=== PATIENT | female | born 1960 | race Two or more races ===

== ENCOUNTER 2019-11-25 04:43 | Emergency (ER) | payer MEDICARE, OTHER ==
[2019-11-25 04:52] VITALS: BP 171/95; PULSE 100; RESP 18; TEMP 98
[2019-11-25] MEDS ORDERED: KETOROLAC 30 MG/ML 1 ML VIAL IVP STA (05:26)
[2019-11-25] MEDS ORDERED: LISINOPRIL 10 MG TAB PO STA (05:26)
[2019-11-25 05:41] LABS: Basophils # (A) 0.2 k/uL (0-0.2); Basophils % (A) 2 %; Eosinophils # (A) 0.5 k/uL (0-0.7); Eosinophils % (A) 5 %; HCT 45.2 % (34.0-46.0); HGB 14.5 gm/dL (11.4-16.0); Lymphocytes # (A) 1.3 k/uL (1.0-4.8); Lymphocytes % (A) 13 %; MCH 32.6 pg (25.0-35.0); MCHC 32.1 g/dL (31.0-37.0); MCV 101.6 fL (80.0-100.0); Macrocytosis Slight; Mean Platelet Volume 7.7; Monocytes # (A) 0.7 k/uL (0-1.0); Monocytes % (A) 7 %; Neutrophils # (A) 7.4 k/uL (1.3-7.7); Neutrophils % (A) 73 %; Platelet Count 327 k/uL (150-450); RBC 4.44 m/uL (3.80-5.40); RDW 13.5 % (11.5-15.5); WBC 10.2 k/uL (3.8-10.6)
--- NOTE | 2019-11-25 05:48 | ED ---
General Adult HPI - General Chief complaint: Extremity Problem,Nontraumatic Stated complaint: Palpitations Time Seen by Provider: 11/25/19 04:46 Source: patient, EMS Mode of arrival: EMS Limitations: no limitations - History of Present Illness Initial comments: Nury is a 59-year-old female with past medical history significant for A. fib, COPD, tobacco abuse and anxiety. Patient comes the ER this morning for evaluation of anxiety and hypertension. Patient states that she is usually on Lisinopril daily, however she ran out 2 days ago and has not been able to get to the pharmacy. patient states she woke up at 2am feeling very anxious, she was nervous about not having her lisinopril and began having a panic attack. Patient has a history of panic attacks. She is on Effexor which she reports she does have and she has been compliant with. Patient states that she can control her panic attack in her hands or going numb and cramping so she called 911. Patient feeling better upon EMS arrival and her symptoms have resolved upon arrival in the emergency department. Patient denies chest pain but reports she did feel that her heart was racing. Denies shortness of breath nausea or vomiting. - Related Data Allergies Allergy/AdvReac Type Severity Reaction Status Date / Time metoprolol Allergy Dyspnea Verified 11/25/19 04:52 Review of Systems ROS Statement: Those systems with pertinent positive or pertinent negative responses have been documented in the HPI. ROS Other: All systems not noted in ROS Statement are negative. Past Medical History Past Medical History: Atrial Fibrillation, Hypertension History of Any Multi-Drug Resistant Organisms: None Reported Additional Past Surgical History / Comment(s): right hand surgery Past Psychological History: Anxiety Smoking Status: Current every day smoker Past Alcohol Use History: None Reported Past Drug Use History: None Reported General Exam - General Exam Comments Initial Comments: Physical Exam GENERAL: Patient is well-developed and well-nourished. Patient is nontoxic and well- hydrated and is in no distress. HENT: Normocephalic, Atraumatic. EYES: PERRL, EOMI PULMONARY: Unlabored respirations. Mild expiratory wheezing consistent with chronic COPD CARDIOVASCULAR: Irregularly irregular tachycardia, warm and well perfused extremities ABDOMEN: Soft and nontender with normal bowel sounds. SKIN: Skin color changes on hands consistent with chronic cigarette smoking : Deferred NEUROLOGIC: Patient is alert and oriented x3. Moving all extremities spontaneously MUSCULOSKELETAL: Normal extremities with adequate strength and full range of motion. No lower extremity swelling or edema. No calf tenderness. PSYCHIATRIC: Normal psychiatric evaluation. Limitations: no limitations Course Vital Signs 11/25/19 04:46 Temperature 98 F Pulse Rate 100 Respiratory 18 Rate Blood Pressure 171/95 O2 Sat by Pulse 95 Oximetry EKG Findings - EKG Comments: EKG Findings:: EKG was obtained due to tachycardia, G was obtained of 5:02 AM, rate is 117 rhythm is narrow complex irregularly irregular tachycardia consistent with A. fib with RVR. Medical Decision Making - Medical Decision Making Patient was seen and evaluated history is obtained from patient. Upon evaluation patient is a symptomatic. Heart rate has decreased to the 90 area labs will be obtained given the patient did seem to have some significant hyperventilation resulting in development of paresthesias in her hands. Labs are consistent with hyperventilation. No acute findings. Patient asymptomatic in the ER she was given her home dose of lisinopril. The same patient eager for discharge home as she has remained asymptomatic throughout her stay H[facility] patient did request an oral Ativan prior to discharge given that she was quite anxious she was given this. Patient making multiple attempts to contact family and [place] for transport home. - Lab Data Result diagrams: 11/25/19 05:11 11/25/19 05:11 Lab Results 11/25/19 11/25/19 11/25/19 Range/Units 05:11 05:11 05:11 WBC 10.2 (3.8-10.6) k/uL RBC 4.44 (3.80-5.40) m/uL Hgb 14.5 (11.4-16.0) gm/dL Hct 45.2 (34.0-46.0) % MCV 101.6 H (80.0-100.0) fL MCH 32.6 (25.0-35.0) pg MCHC 32.1 (31.0-37.0) g/dL RDW 13.5 (11.5-15.5) % Plt Count 327 (150-450) k/uL Neutrophils % 73 % Lymphocytes % 13 % Monocytes % 7 % Eosinophils % 5 % Basophils % 2 % Neutrophils # 7.4 (1.3-7.7) k/uL Lymphocytes # 1.3 (1.0-4.8) k/uL Monocytes # 0.7 (0-1.0) k/uL Eosinophils # 0.5 (0-0.7) k/uL Basophils # 0.2 (0-0.2) k/uL Macrocytosis Slight PT 10.4 (9.0-12.0) sec INR 1.0 (<1.2) APTT 25.6 (22.0-30.0) sec Sodium 136 L (137-145) mmol/L Potassium 5.0 (3.5-5.1) mmol/L Chloride 107 (98-107) mmol/L Carbon Dioxide 21 L (22-30) mmol/L Anion Gap 8 mmol/L BUN 17 (7-17) mg/dL Creatinine 0.47 L (0.52-1.04) mg/dL Est GFR (CKD-EPI)AfAm >90 (>60 ml/min/1.73 sqM) Est GFR (CKD-EPI)NonAf >90 (>60 ml/min/1.73 sqM) Glucose 109 H (74-99) mg/dL Calcium 9.1 (8.4-10.2) mg/dL Magnesium 2.0 (1.6-2.3) mg/dL Total Bilirubin 0.6 (0.2-1.3) mg/dL AST 35 (14-36) U/L ALT 18 (4-34) U/L Alkaline Phosphatase 115 (38-126) U/L Total Protein 7.7 (6.3-8.2) g/dL Albumin 4.2 (3.5-5.0) g/dL Disposition Clinical Impression: HTN (hypertension), Hyperventilation, Tobacco abuse Disposition: HOME SELF-CARE Condition: Stable Additional Instructions: 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 Follow up with her regular doctor. Call 911 or return to the emergency department if he have any worsening symptoms develop any chest pain palpitations nausea vomiting or any new or concerning symptoms. Is patient prescribed a controlled substance at d/c from ED?: No Referrals: Nonstaff,Physician [Primary Care Provider] - 1-2 days
[2019-11-25 05:51] LABS: ALT 18 U/L (4-34); AST 35 U/L (14-36); African American GFR (CKD) >90 (>60 ml/min/1.73 sqM); Albumin 4.2 g/dL (3.5-5.0); Alkaline Phosphatase 115 U/L (38-126); Anion Gap 8 mmol/L; Blood Urea Nitrogen 17 mg/dL (7-17); Calcium 9.1 mg/dL (8.4-10.2); Carbon Dioxide 21 mmol/L (22-30); Chloride 107 mmol/L (98-107); Glucose 109 mg/dL (74-99); Non-African American GFR(CKD) >90 (>60 ml/min/1.73 sqM); Sodium 136 mmol/L (137-145); Total Bilirubin 0.6 mg/dL (0.2-1.3); Total Protein 7.7 g/dL (6.3-8.2)
[2019-11-25 05:52] LABS: Partial Thromboplastin Time 25.6 sec (22.0-30.0); Prothrombin Time 10.4 sec (9.0-12.0)
--- NOTE | 2019-11-25 06:12 | XR ---
EXAM: XR Chest, 2 Views CLINICAL HISTORY: Chest Pain TECHNIQUE: Frontal and lateral views of the chest. COMPARISON: No relevant prior studies available. FINDINGS: Lungs: Subsegmental opacities suggested at the lung bases. The lungs are otherwise unremarkable. The pulmonary vasculature demonstrates no significant radiographic abnormality. Pleural space: Unremarkable. No pneumothorax. No large pleural effusion. Heart: Borderline cardiomegaly. Mediastinum: The mediastinal contours are unremarkable. The trachea is midline. Bones/joints: Unremarkable. IMPRESSION: Subsegmental opacities suggested at the lung bases. Subtle bibasilar pneumonia is suggested. Please correlate clinically. Differential consideration also includes chronic changes or atelectasis. No large pleural effusion or pneumothorax.
[2019-11-25] MEDS ORDERED: LORazepam 1 MG TAB PO STA (06:17)
== END 2019-11-25 07:20 | disposition home or self-care (01) ==
LOC: EC 04:43
DX: I10 Essential (primary) hypertension (principal); R06.4 Hyperventilation; R20.2 Paresthesia of skin; I48.91 Unspecified atrial fibrillation; F17.200 Nicotine dependence, unspecified, uncomplicated; Z88.8 Allergy status to other drugs, medicaments and biological substances
CPT/HCPCS: 36415; 93005; 83880; 80053; 83735; 84484; 85025; 85610; 85730; 71046; 99285; 96374; J1885

== ENCOUNTER 2020-05-14 11:00 | Inpatient (IN) | payer MEDICARE, OTHER ==
[2020-05-14] MEDS ORDERED: SODIUM CHLORIDE 0.9% 1,000 ML IV STA (11:19)
[2020-05-14] MEDS ORDERED: IPRATROPIUM-ALBUTEROL 3 ML NEB INHALATION STA (11:21)
--- NOTE | 2020-05-14 11:27 | ED ---
SOB HPI - General Chief Complaint: Shortness of Breath Stated Complaint: SOB Time Seen by Provider: 05/14/20 11:07 Source: patient, RN/MD, EMS, RN notes reviewed, old records reviewed Mode of arrival: EMS Limitations: no limitations - History of Present Illness Initial Comments: is a transfer from [facility] with 2. shortness of breath and chest discomfort. She reports she had 3 days of worsening shortness of breath. She reports that she recently decided to quit smoking this past week. Patient was seen at [facility] she's been be critically short of breath, was placed on BiPAP. Patient ports that she has a history of atrial fibrillation and as prescribed L Maya a Cardizem and is compliant with medication. She was given an aspirin albuterol, Atrovent and 125 mg soluMedrol. There was a delay and inability complete lab work because the machines are not working at [facility]. Patient reports that her director case management in [place] is Dr. Walker. She is unable to state all for medications or her other physicians. Patient reports that after receiving breathing treatments and BiPAP \ while at [place] she is feeling shortness fo breath is much improved. Patient reports that she does feel somewhat anxious. She is given Ativan at [facility] does report improvement. - Related Data Home Medications Medication Instructions Recorded Confirmed Apixaban [Eliquis] 5 mg PO BID 05/14/20 05/14/20 Diltiazem HCl [Diltiazem HCl 24Hr 180 mg PO HS 05/14/20 05/14/20 ER (CD)] Fish Oil(Unknown) 1 cap PO DAILY 05/14/20 05/14/20 Lisinopril [Zestril] 10 mg PO HS 05/14/20 05/14/20 Multivitamins, Thera [Multivitamin 1 tab PO DAILY 05/14/20 05/14/20 (formulary)] Oxybutynin Xl [Ditropan XL] 5 mg PO DAILY 05/14/20 05/14/20 Venlafaxine HCl ER [Effexor Xr] 75 mg PO HS 05/14/20 05/14/20 Venlafaxine HCl ER [Effexor Xr] 150 mg PO DAILY 05/14/20 05/14/20 hydrOXYzine HCL 25 mg PO BID 05/14/20 05/14/20 Allergies Allergy/AdvReac Type Severity Reaction Status Date / Time metoprolol AdvReac Rapid Verified 05/14/20 12:04 Heart Rate Review of Systems ROS Statement: Those systems with pertinent positive or pertinent negative responses have been documented in the HPI. ROS Other: All systems not noted in ROS Statement are negative. Past Medical History Past Medical History: Atrial Fibrillation, Hypertension History of Any Multi-Drug Resistant Organisms: None Reported Additional Past Surgical History / Comment(s): right hand surgery Past Psychological History: Anxiety Smoking Status: Current every day smoker Past Alcohol Use History: None Reported Past Drug Use History: Marijuana General Exam - General Exam Comments Initial Comments: 51-year-old female. Alert and oriented. No significant distress. Patient is resting in bed requesting coffee. She is on 10 L of oxygen satting at 99%. Limitations: no limitations General appearance: alert, in no apparent distress Head exam: Present: atraumatic Eye exam: Present: normal appearance, PERRL, EOMI. Absent: scleral icterus, conjunctival injection, periorbital swelling ENT exam: Present: normal exam, mucous membranes moist Neck exam: Present: normal inspection. Absent: tenderness, meningismus, lymphadenopathy Respiratory exam: Present: wheezes, decreased breath sounds. Absent: normal lung sounds bilaterally, respiratory distress, rales, rhonchi, stridor Cardiovascular Exam: Present: regular rate, normal rhythm, normal heart sounds. Absent: systolic murmur, diastolic murmur, rubs, gallop, clicks GI/Abdominal exam: Present: soft, normal bowel sounds. Absent: distended, tenderness, guarding, rebound, rigid Extremities exam: Present: normal inspection, full ROM, normal capillary refill. Absent: tenderness, pedal edema, joint swelling, calf tenderness Back exam: Present: normal inspection Neurological exam: Present: alert, oriented X3, CN II-XII intact Psychiatric exam: Present: normal affect, normal mood Skin exam: Present: warm, dry, intact, normal color. Absent: rash Course Vital Signs 05/14/20 05/14/20 05/14/20 11:13 11:38 11:55 Temperature 98.5 F Pulse Rate 105 H 89 92 Respiratory 24 Rate Blood Pressure 129/97 O2 Sat by Pulse 98 Oximetry 05/14/20 12:18 Temperature Pulse Rate Respiratory 20 Rate Blood Pressure O2 Sat by Pulse Oximetry - Reevaluation(s) Reevaluation #1: 05/14/20 13:55 reevaluated becoming clinically more dyspneic, and anxious. Pulling a clothes. States she has to get out of here. Patient has diffuse rales and rhonchi throughout lung soler. Stat chest x-rays being completed this time and rest recall the put the Patient back on BiPAP. Medical Decision Making - Medical Decision Making Patient is a 59-year-old female with history of atrial fibrillation L Maya with worsening shortness of breath and chest discomfort today. She is a transfer from [facility]. When she was there she was found to be respirator distress and placed on BiPAP. [facility] and were waiting further lab evaluation. Her initial chest x-ray [facility] show some interstitial edema. Patient labs were obtained and given small fluid bolus. While Patient was in emergency department she started to decline worsening shortness of breath. She has been started on BiPAP again at this time. Her tubal glass will be completed. Patient does not have an elevated troponin 0.7. Patient was started on heparin bolus and drip. D-dimer is negative. Disucssed with Dr. Rodríguez whom discussed with Dr. Hale and Dr. Finley. - Lab Data Result diagrams: 05/14/20 11:33 05/14/20 12:37 Lab Results 05/14/20 05/14/20 05/14/20 Range/Units 11:33 11:33 11:33 WBC 14.0 H (3.8-10.6) k/uL RBC 3.98 (3.80-5.40) m/uL Hgb 13.3 (11.4-16.0) gm/dL Hct 40.7 (34.0-46.0) % MCV 102.2 H (80.0-100.0) fL MCH 33.5 (25.0-35.0) pg MCHC 32.8 (31.0-37.0) g/dL RDW 13.9 (11.5-15.5) % Plt Count 295 (150-450) k/uL Neutrophils % 93 % Lymphocytes % 4 % Monocytes % 2 % Eosinophils % 1 % Basophils % 0 % Neutrophils # 13.0 H (1.3-7.7) k/uL Lymphocytes # 0.5 L (1.0-4.8) k/uL Monocytes # 0.2 (0-1.0) k/uL Eosinophils # 0.1 (0-0.7) k/uL Basophils # 0.0 (0-0.2) k/uL Macrocytosis Slight PT 10.0 (9.0-12.0) sec INR 1.0 (<1.2) APTT 21.9 L (22.0-30.0) sec D-Dimer (<0.60) mg/L FEU VBG pH (7.31-7.41) VBG pCO2 (37-51) mmHg VBG HCO3 (24-28) mmol/L Sodium (137-145) mmol/L Potassium (3.5-5.1) mmol/L Chloride (98-107) mmol/L Carbon Dioxide (22-30) mmol/L Anion Gap mmol/L BUN (7-17) mg/dL Creatinine (0.52-1.04) mg/dL Est GFR (CKD-EPI)AfAm (>60 ml/min/1.73 sqM) Est GFR (CKD-EPI)NonAf (>60 ml/min/1.73 sqM) Glucose (74-99) mg/dL Plasma Lactic Acid Fausto 1.4 (0.7-2.0) mmol/L Calcium (8.4-10.2) mg/dL Magnesium (1.6-2.3) mg/dL Total Bilirubin (0.2-1.3) mg/dL AST (14-36) U/L ALT (4-34) U/L Alkaline Phosphatase (38-126) U/L Troponin I (0.000-0.034) ng/mL NT-Pro-B Natriuret Pep pg/mL Total Protein (6.3-8.2) g/dL Albumin (3.5-5.0) g/dL 05/14/20 05/14/20 05/14/20 Range/Units 11:33 11:33 11:33 WBC (3.8-10.6) k/uL RBC (3.80-5.40) m/uL Hgb (11.4-16.0) gm/dL Hct (34.0-46.0) % MCV (80.0-100.0) fL MCH (25.0-35.0) pg MCHC (31.0-37.0) g/dL RDW (11.5-15.5) % Plt Count (150-450) k/uL Neutrophils % % Lymphocytes % % Monocytes % % Eosinophils % % Basophils % % Neutrophils # (1.3-7.7) k/uL Lymphocytes # (1.0-4.8) k/uL Monocytes # (0-1.0) k/uL Eosinophils # (0-0.7) k/uL Basophils # (0-0.2) k/uL Macrocytosis PT (9.0-12.0) sec INR (<1.2) APTT (22.0-30.0) sec D-Dimer 0.28 (<0.60) mg/L FEU VBG pH (7.31-7.41) VBG pCO2 (37-51) mmHg VBG HCO3 (24-28) mmol/L Sodium (137-145) mmol/L Potassium (3.5-5.1) mmol/L Chloride (98-107) mmol/L Carbon Dioxide (22-30) mmol/L Anion Gap mmol/L BUN (7-17) mg/dL Creatinine (0.52-1.04) mg/dL Est GFR (CKD-EPI)AfAm (>60 ml/min/1.73 sqM) Est GFR (CKD-EPI)NonAf (>60 ml/min/1.73 sqM) Glucose (74-99) mg/dL Plasma Lactic Acid Fausto (0.7-2.0) mmol/L Calcium (8.4-10.2) mg/dL Magnesium (1.6-2.3) mg/dL Total Bilirubin (0.2-1.3) mg/dL AST (14-36) U/L ALT (4-34) U/L Alkaline Phosphatase (38-126) U/L Troponin I 0.704 H* (0.000-0.034) ng/mL NT-Pro-B Natriuret Pep 3790 pg/mL Total Protein (6.3-8.2) g/dL Albumin (3.5-5.0) g/dL 05/14/20 05/14/20 Range/Units 11:55 12:37 WBC (3.8-10.6) k/uL RBC (3.80-5.40) m/uL Hgb (11.4-16.0) gm/dL Hct (34.0-46.0) % MCV (80.0-100.0) fL MCH (25.0-35.0) pg MCHC (31.0-37.0) g/dL RDW (11.5-15.5) % Plt Count (150-450) k/uL Neutrophils % % Lymphocytes % % Monocytes % % Eosinophils % % Basophils % % Neutrophils # (1.3-7.7) k/uL Lymphocytes # (1.0-4.8) k/uL Monocytes # (0-1.0) k/uL Eosinophils # (0-0.7) k/uL Basophils # (0-0.2) k/uL Macrocytosis PT (9.0-12.0) sec INR (<1.2) APTT (22.0-30.0) sec D-Dimer (<0.60) mg/L FEU VBG pH 7.30 L (7.31-7.41) VBG pCO2 49 (37-51) mmHg VBG HCO3 23 L (24-28) mmol/L Sodium 137 (137-145) mmol/L Potassium 4.7 (3.5-5.1) mmol/L Chloride 108 H (98-107) mmol/L Carbon Dioxide 22 (22-30) mmol/L Anion Gap 7 mmol/L BUN 14 (7-17) mg/dL Creatinine 0.45 L (0.52-1.04) mg/dL Est GFR (CKD-EPI)AfAm >90 (>60 ml/min/1.73 sqM) Est GFR (CKD-EPI)NonAf >90 (>60 ml/min/1.73 sqM) Glucose 165 H (74-99) mg/dL Plasma Lactic Acid Fausto (0.7-2.0) mmol/L Calcium 8.2 L (8.4-10.2) mg/dL Magnesium 1.8 (1.6-2.3) mg/dL Total Bilirubin 0.7 (0.2-1.3) mg/dL AST 50 H (14-36) U/L ALT 19 (4-34) U/L Alkaline Phosphatase 87 (38-126) U/L Troponin I (0.000-0.034) ng/mL NT-Pro-B Natriuret Pep pg/mL Total Protein 7.3 (6.3-8.2) g/dL Albumin 3.9 (3.5-5.0) g/dL 05/14/20 12:27 EKG shows atrial flutter with variable AV block. Right axis deviation. Anteroseptal infarct. ST-T wave and Jennifer ischemia. Ventricular rate of 103 beats were minute. Is undetected. QRS duration is 78 ms. QT QTc is 290/379 ms. - Radiology Data Radiology results: report reviewed Patient's chest x-ray shows evidence of felon of interstitial edema. Critical Care Time Critical Care Time: Yes Total Critical Care Time: 35 Disposition Clinical Impression: Respiratory distress, COPD (chronic obstructive pulmonary disease), Elevated troponin, CHF (congestive heart failure), Atrial flutter Disposition: ADMITTED IP TO THIS HOSP Condition: Stable Is patient prescribed a controlled substance at d/c from ED?: No Referrals: None,Stated [Primary Care Provider] - 1-2 days Time of Disposition: 14:01
[2020-05-14 11:53] LABS: Basophils % (A) 0 %; Eosinophils # (A) 0.1 k/uL (0-0.7); Eosinophils % (A) 1 %; HCT 40.7 % (34.0-46.0); HGB 13.3 gm/dL (11.4-16.0); Lymphocytes # (A) 0.5 k/uL (1.0-4.8); Lymphocytes % (A) 4 %; MCH 33.5 pg (25.0-35.0); MCHC 32.8 g/dL (31.0-37.0); MCV 102.2 fL (80.0-100.0); Macrocytosis Slight; Mean Platelet Volume 7.1; Monocytes # (A) 0.2 k/uL (0-1.0); Monocytes % (A) 2 %; Neutrophils % (A) 93 %; Platelet Count 295 k/uL (150-450); RBC 3.98 m/uL (3.80-5.40); RDW 13.9 % (11.5-15.5)
[2020-05-14 12:08] LABS: Partial Thromboplastin Time 21.9 sec (22.0-30.0)
[2020-05-14 12:14] LABS: VBG PH 7.3 (7.31-7.41)
[2020-05-14] MEDS: SODIUM CHLORIDE 0.9% 1,000 ML IV SCH (12:19)
[2020-05-14 12:54] LABS: ALT 19 U/L (4-34); AST 50 U/L (14-36); African American GFR (CKD) >90 (>60 ml/min/1.73 sqM); Albumin 3.9 g/dL (3.5-5.0); Alkaline Phosphatase 87 U/L (38-126); Anion Gap 7 mmol/L; Blood Urea Nitrogen 14 mg/dL (7-17); Calcium 8.2 mg/dL (8.4-10.2); Carbon Dioxide 22 mmol/L (22-30); Chloride 108 mmol/L (98-107); Glucose 165 mg/dL (74-99); Magnesium 1.8 mg/dL (1.6-2.3); Non-African American GFR(CKD) >90 (>60 ml/min/1.73 sqM); Sodium 137 mmol/L (137-145); Total Bilirubin 0.7 mg/dL (0.2-1.3); Total Protein 7.3 g/dL (6.3-8.2)
[2020-05-14] MEDS ORDERED: FUROSEMIDE 10 MG/ML 4 ML VIAL IV STA (13:01)
[2020-05-14] MEDS ORDERED: LORazepam 2 MG/ML INJ IV STA (13:20)
[2020-05-14 13:22] LABS: Potassium 4.7 mmol/L (3.5-5.1)
[2020-05-14] MEDS ORDERED: HEPARIN SODIUM,PORCINE 5,000 UNIT/ML 1 ML VIAL IV ONE (13:23)
[2020-05-14] MEDS ORDERED: NITROGLYCERIN SL TABS 0.4 MG TAB SUBLINGUAL PRN (13:23)
[2020-05-14] MEDS ORDERED: NITROGLYCERIN OINT 1 INCH/GM PACKET TOPICAL STA (13:25)
[2020-05-14] MEDS: DILTIAZEM 125 MG in SODIUM CHLORIDE 0.9% 100 ML IV SCH (13:37)
[2020-05-14] MEDS: HEPARIN SOD,PORK IN 0.45% NACL 25,000 UNIT in 0.45% NACL 1 250ML.BAG IV SCH (13:50)
[2020-05-14] MEDS ORDERED: NALOXONE 0.4 MG/ML 1 ML VIAL IV PRN (14:03)
[2020-05-14] MEDS ORDERED: ACETAMINOPHEN TAB 325 MG TAB PO PRN (14:03)
--- NOTE | 2020-05-14 14:04 | XR ---
EXAMINATION TYPE: XR chest 1V DATE OF EXAM: 05/14/2020 COMPARISON: 05/14/2020 HISTORY: Shortness of breath FINDINGS: There are bilateral pleural effusions with cardiomegaly and bibasilar infiltrate. There is a diffuse interstitial pattern. Diffuse osteopenia. IMPRESSION: 1. Correlate for CHF otherwise consider diffuse pneumonia.
[2020-05-14] MEDS ORDERED: cefTRIAXone IN SWFI 1,000 MG/10 ML SYRINGE IVP ONE (14:22)
--- NOTE | 2020-05-14 14:27 | P.HPIM ---
History of Present Illness This is a pleasant 69 years old female with past medical history of paroxysmal atrial fibrillation/flutter on Eliquis, cigarette smoker, hypertension. She is a patient of Dr. 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 Patient could not provide information because of her respiratory situation, information was obtained from her sister at bedside. Stating that she woke up earlier this morning about 6:00 with respiratory distress and panic attack where she took anxiety pills, also she was complaining of from mild chest pain on and off for the last 2 weeks. She is coughing with little phlegm, unknown color. She denies abdominal pain, nausea vomiting, no change in urine or bowel habits. No fever. No sick contacts as she was stating in her house for the last 3 months because of the coronal pandemic however her son works in a store. She was trying to quit cigarettes and she is down to 5 cigarettes per day, occasional alcohol no list of drugs Also she follows up with [facility] at [place] to rule out lung cancer,on lung spot found sometime ago when she was following up, lately they told her it is not malignant of a supposed to follow up but patient could not because of coronary bars pandemic. She is tachypneic with a breathing rate 20-24, rest of vitals are stable, however she is saturating 98% on 2 L oxygen via nonrebreather, however after that she needed to be on BiPAP machine. She has leukocytosis of 14.0 K, risks of CBC is unremarkable, d-dimer negative a t 0.2, VBG showing pH of 7.30, pCO2 49 and HCO3 23, electrode sodium and potassium are normal, creatinine normal at 0.7. On her troponin 0.7 chest x-ray: Bilateral pleural effusions with bibasilar infiltrates and diffuse interstitial pattern, suspicious for CHF versus diffuse pneumonia EKG showing atrial flutter with variable AV block, current of 103 and then QTC of 379. In the emergency room patient was started on heparin drip, Cardizem at 5/h and started on BiPAP machine Review of Systems n/a Patient could not provide information because she was on BiPAP machine and she was in respiratory distress Past Medical History Past Medical History: Atrial Fibrillation, Hypertension History of Any Multi-Drug Resistant Organisms: None Reported Additional Past Surgical History / Comment(s): right hand surgery Past Psychological History: Anxiety Smoking Status: Current every day smoker Past Alcohol Use History: None Reported Past Drug Use History: Marijuana Medications and Allergies Home Medications Medication Instructions Recorded Confirmed Type Apixaban [Eliquis] 5 mg PO BID 05/14/20 05/14/20 History Diltiazem HCl [Diltiazem HCl 24Hr 180 mg PO HS 05/14/20 05/14/20 History ER (CD)] Fish Oil(Unknown) 1 cap PO DAILY 05/14/20 05/14/20 History Lisinopril [Zestril] 10 mg PO HS 05/14/20 05/14/20 History Multivitamins, Thera [Multivitamin 1 tab PO DAILY 05/14/20 05/14/20 History (formulary)] Oxybutynin Xl [Ditropan XL] 5 mg PO DAILY 05/14/20 05/14/20 History Venlafaxine HCl ER [Effexor Xr] 75 mg PO HS 05/14/20 05/14/20 History Venlafaxine HCl ER [Effexor Xr] 150 mg PO DAILY 05/14/20 05/14/20 History hydrOXYzine HCL 25 mg PO BID 05/14/20 05/14/20 History Allergies Allergy/AdvReac Type Severity Reaction Status Date / Time metoprolol AdvReac Rapid Verified 05/14/20 12:04 Heart Rate Physical Exam Vitals: Vital Signs Temp Pulse Resp BP Pulse Ox 05/14/20 12:18 20 05/14/20 11:55 92 05/14/20 11:38 89 05/14/20 11:13 98.5 F 105 H 24 129/97 98 Intake and Output 05/13/20 05/14/20 05/14/20 22:59 06:59 14:59 Other: Weight 45.359 kg -GENERAL: The patient is alert and awake, she is in significant respiratory distress needing BiPAP, thin built HEENT: Pupils are round and equally reacting to light. EOMI. No scleral icterus. No conjunctival pallor. Normocephalic, atraumatic. No pharyngeal erythema. No thyromegaly. CARDIOVASCULAR: S1 and S2 present. No murmurs, rubs, or gallops. -PULMONARY: Chest is clear to auscultation, decreased air entry all over with scattered wheezing ABDOMEN: Soft, nontender, nondistended, normoactive bowel sounds. No palpable organomegaly. MUSCULOSKELETAL: No joint swelling or deformity. EXTREMITIES: No cyanosis, clubbing, or pedal edema. NEUROLOGICAL: Gross neurological examination did not reveal any focal deficits. SKIN: No rashes. no petechiae. Results CBC & Chem 7: 05/14/20 11:33 05/14/20 12:37 Labs: Abnormal Lab Results - Last 24 Hours (Table) 05/14/20 05/14/20 05/14/20 Range/Units 11:33 11:33 11:33 WBC 14.0 H (3.8-10.6) k/uL MCV 102.2 H (80.0-100.0) fL Neutrophils # 13.0 H (1.3-7.7) k/uL Lymphocytes # 0.5 L (1.0-4.8) k/uL APTT 21.9 L (22.0-30.0) sec VBG pH (7.31-7.41) VBG HCO3 (24-28) mmol/L Chloride (98-107) mmol/L Creatinine (0.52-1.04) mg/dL Glucose (74-99) mg/dL Calcium (8.4-10.2) mg/dL AST (14-36) U/L Troponin I 0.704 H* (0.000-0.034) ng/mL 05/14/20 05/14/20 Range/Units 11:55 12:37 WBC (3.8-10.6) k/uL MCV (80.0-100.0) fL Neutrophils # (1.3-7.7) k/uL Lymphocytes # (1.0-4.8) k/uL APTT (22.0-30.0) sec VBG pH 7.30 L (7.31-7.41) VBG HCO3 23 L (24-28) mmol/L Chloride 108 H (98-107) mmol/L Creatinine 0.45 L (0.52-1.04) mg/dL Glucose 165 H (74-99) mg/dL Calcium 8.2 L (8.4-10.2) mg/dL AST 50 H (14-36) U/L Troponin I (0.000-0.034) ng/mL Assessment and Plan Assessment: Acute hypoxic respiratory distress Acute dyspnea, possible secondary to pneumonia. Check for CHF as well Paroxysmal A. fib/flutter: Eliquis Nicotine dependence Hypertension Plan: This is a pleasant 59 years old female who presents with respiratory distress, p ossible pneumonia versus CHF. Continue with a breathing treatment, monitor oxygen and respiratory distress closely. Pulmonary consult. Cardiology consult. Continue with heparin drip and Cardizem drip. She wished oral medication when appropriate. Labs and medication were reviewed.. Continue same treatment. Continue with symptomatic treatment. Resume home medication. Monitor lytes and vitals. DVT and GI prophylaxis. Further recommendations of the clinical course of the patient DVT prophylaxis: heparin GI Prophylaxis: Pepcid PT/OT: Pending Prognosis is guarded
[2020-05-14 15:25] LABS: ABG HCO3 23 mmol/L (21-25); ABG PCO2 51 mmHg (35-45); ABG PH 7.26 (7.35-7.45); ABG PO2 78 mmHg (83-108); ABG TCO2 24 mmol/L (19-24); Allen Test Performed? Yes
[2020-05-14 15:26] LABS: ABG Base Excess -4.3 mmol/L; ABG Oxygen Saturation 93.9 % (94-97)
[2020-05-14] MEDS: HEPARIN SODIUM,PORCINE 5,000 UNIT/ML 1 ML VIAL IV PRN (20:35)
[2020-05-14] MEDS: IPRATROPIUM-ALBUTEROL 3 ML NEB INHALATION PRN (20:56)
[2020-05-14] MEDS ORDERED: APIXABAN 5 MG TAB PO SCH (21:00)
[2020-05-14] MEDS: LISINOPRIL 10 MG TAB PO SCH (21:23)
[2020-05-14] MEDS: VENLAFAXINE HCL ER 75 MG CAP PO SCH (21:43)
[2020-05-14] MEDS: hydrOXYzine HCL 25 MG TAB PO SCH (21:43)
[2020-05-14] MEDS: FUROSEMIDE 10 MG/ML 4 ML VIAL IV SCH (21:45)
[2020-05-15] MEDS ORDERED: LORazepam 2 MG/ML INJ IV STA (05:46)
[2020-05-15] MEDS: SODIUM CHLORIDE 0.9% 1,000 ML IV SCH (05:51)
[2020-05-15 06:34] LABS: Basophils % (A) 0 %; Eosinophils # (A) 0.3 k/uL (0-0.7); Eosinophils % (A) 2 %; HCT 39.9 % (34.0-46.0); HGB 12.8 gm/dL (11.4-16.0); Lymphocytes # (A) 0.8 k/uL (1.0-4.8); Lymphocytes % (A) 5 %; MCH 32.3 pg (25.0-35.0); MCHC 32.1 g/dL (31.0-37.0); MCV 100.4 fL (80.0-100.0); Macrocytosis Slight; Mean Platelet Volume 7.1; Monocytes % (A) 6 %; Neutrophils # (A) 14.6 k/uL (1.3-7.7); Neutrophils % (A) 87 %; Platelet Count 309 k/uL (150-450); RBC 3.98 m/uL (3.80-5.40); RDW 13.9 % (11.5-15.5); WBC 16.8 k/uL (3.8-10.6)
[2020-05-15] MEDS ORDERED: ENALAPRILAT 1.25 MG/ML 1 ML VIAL IVP STA (06:48)
[2020-05-15 06:50] LABS: African American GFR (CKD) >90 (>60 ml/min/1.73 sqM); Anion Gap 10 mmol/L; Blood Urea Nitrogen 18 mg/dL (7-17); Carbon Dioxide 22 mmol/L (22-30); Chloride 105 mmol/L (98-107); Cholesterol 163 mg/dL (<200); Glucose 149 mg/dL (74-99); HDL Cholesterol 62 mg/dL (40-60); LDL Cholesterol,Calculated 89 mg/dL (0-99); Magnesium 1.8 mg/dL (1.6-2.3); Non-African American GFR(CKD) >90 (>60 ml/min/1.73 sqM); Potassium 4.4 mmol/L (3.5-5.1); Sodium 137 mmol/L (137-145); Triglycerides 61 mg/dL (<150)
[2020-05-15] MEDS: IPRATROPIUM-ALBUTEROL 3 ML NEB INHALATION PRN (07:43)
[2020-05-15] MEDS: MULTIVITAMINS, THERA 1 EACH TAB PO SCH (08:19)
[2020-05-15] MEDS: FUROSEMIDE 10 MG/ML 4 ML VIAL IV SCH ×2 (08:19→21:40)
[2020-05-15] MEDS ORDERED: FISH OIL PO SCH (09:00)
[2020-05-15] MEDS: HEPARIN SODIUM,PORCINE 5,000 UNIT/ML 1 ML VIAL IV PRN (10:12)
--- NOTE | 2020-05-15 10:43 | P.PN ---
Subjective This is a pleasant 69 years old female with past medical history of paroxysmal atrial fibrillation/flutter on Eliquis, cigarette smoker, hypertension. She is a patient of Dr. 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 Patient could not provide information because of her respiratory situation, information was obtained from her sister at bedside. Stating that she woke up earlier this morning about 6:00 with respiratory distress and panic attack where she took anxiety pills, also she was complaining of from mild chest pain on and off for the last 2 weeks. She is coughing with little phlegm, unknown color. She denies abdominal pain, nausea vomiting, no change in urine or bowel habits. No fever. No sick contacts as she was stating in her house for the last 3 months because of the coronal pandemic however her son works in a store. She was trying to quit cigarettes and she is down to 5 cigarettes per day, occasional alcohol no list of drugs Also she follows up with [facility] at [place] to rule out lung cancer,on lung spot found sometime ago when she was following up, lately they told her it is not malignant of a supposed to follow up but patient could not because of coronary bars pandemic. She is tachypneic with a breathing rate 20-24, rest of vitals are stable, however she is saturating 98% on 2 L oxygen via nonrebreather, however after that she needed to be on BiPAP machine. She has leukocytosis of 14.0 K, risks of CBC is unremarkable, d-dimer negative at 0.2, VBG showing pH of 7.30, pCO2 49 and HCO3 23, electrode sodium and potassium are normal, creatinine normal at 0.7. On her troponin 0.7 chest x-ray: Bilateral pleural effusions with bibasilar infiltrates and diffuse interstitial pattern, suspicious for CHF versus diffuse pneumonia EKG showing atrial flutter with variable AV block, current of 103 and then QTC of 379. In the emergency room patient was started on heparin drip, Cardizem at 5/h and started on BiPAP machine 05/15/2020 Patient is awake and alert, she is on nasal cannula getting through the cuff oxygen per minute.her oxygen saturating is 90s.patient is answering questions appropriately she denies chest pain, she is somewhat tachypneic. No dizziness, no abdominal pain, no change in urine or bowel habits. She confirms a history obtained from her sister yesterday that for the last 2 days she is been getting more short of breath and with panic attacks associated with cough and clear phlegm but no chest pain. She is to be heavy smoker for 40 years and now she is trying to cut down and currently she is smoking 3 cigarettes per day. She is follow-up with Dr. Chel Solano. she has leukocytosis of 16.8 K,d-dimer was negative yesterday at 0.28. BMP is unremarkable, magnesium 1.8, troponin were elevated. patient was nothing by mouth, patient's wants a cup of coffee and diet, I told the patient that cardiology consult is pending and she might need a test or procedure today, patient told me she does not want to do any tests today , diet was started upon her request she has a Rich catheter which was placed in the emergency room, we will discontinue the Rich catheter and give her a voiding trial. We'll send also urine analysis she is currently on Cardizem drip and heparin dripI will also she is on Lasix 40 mg twice daily. her chest x-ray yesterday was suspicious for CHF versus interstitial edema. She got 1 dose of Rocephin yesterday however her leukocytosis is reversed. We'll going to continue with Rocephin and Zithromax CONSTITUTIONAL: No fever, no malaise, no fatigue. HEENT: No recent visual problems or hearing problems. Denied any sore throat. CARDIOVASCULAR: no palpitations, no syncope. PULMONARY: no hemoptysis. GASTROINTESTINAL: No diarrhea, no nausea, no vomiting, no abdominal pain. Normoactive bowel sounds. NEUROLOGICAL: No headaches, no weakness, no numbness. HEMATOLOGICAL: Denies any bleeding or petechiae. GENITOURINARY: Denies any burning micturition, frequency, or urgency. MUSCULOSKELETAL/RHEUMATOLOGICAL: Denies any joint pain, swelling, or any muscle pain. ENDOCRINE: Denies any polyuria or polydipsia. Active Medications Generic Name Dose Route Start Last Admin Trade Name Freq PRN Reason Stop Dose Admin Acetaminophen 650 mg 05/14/20 14:03 Tylenol Tab PO Q4HR PRN Fever and/or Mild Pain Albuterol/Ipratropium 3 ml 05/14/20 14:03 05/15/20 07:43 Duoneb 0.5 Mg-3 Mg/3 Ml Soln INHALATION 3 ml RT-Q4H PRN Administration Shortness Of Breath Or Wheezing Furosemide 40 mg 05/14/20 21:00 05/15/20 08:19 Lasix IV 40 mg Q12HR OWEN Administration Heparin Sodium (Porcine) 0 unit 05/14/20 20:00 05/15/20 10:12 Heparin IV 4,000 unit PER PROTOCOL PRN Administration Low PTT Protocol Hydroxyzine HCl 25 mg 05/14/20 21:00 05/14/20 21:43 Atarax PO 25 mg BID OWEN Administration Sodium Chloride 1,000 mls @ 10 mls/hr 05/14/20 11:30 05/15/20 05:51 Saline 0.9% IV 10 mls/hr .Q24H OWEN Administration Diltiazem HCl 125 mg/ Sodium 125 mls @ 5 mls/hr 05/14/20 13:15 05/14/20 13:37 Chloride IV 5 mg/hr .Q24H OWEN 5 mls/hr Administration 5 MG/HR Heparin Sodium/Sodium Chloride 250 mls @ 5.443 mls/hr 05/14/20 13:30 05/15/20 10:19 25,000 unit/ Sodium Chloride IV 18 units/kg/hr .Q24H OWEN 8.165 mls/hr Titration Protocol 12 UNITS/KG/HR Ceftriaxone Sodium 1 gm/ 50 mls @ 100 mls/hr 05/15/20 10:45 Sodium Chloride IVPB Q24HR OWEN Azithromycin 500 mg/ Sodium 250 mls @ 250 mls/hr 05/15/20 10:45 Chloride IVPB DAILY OWEN Lisinopril 10 mg 05/14/20 21:00 05/14/20 21:23 Zestril PO Not Given HS OWEN Multivitamins 1 each 05/15/20 09:00 05/15/20 08:19 Theragran PO 1 each DAILY OWEN Administration Naloxone HCl 0.2 mg 05/14/20 14:03 Narcan IV Q2M PRN Opioid Reversal Nitroglycerin 0.4 mg 05/14/20 13:23 Nitrostat SUBLINGUAL Q5M PRN Chest Pain Venlafaxine HCl 75 mg 05/14/20 21:00 05/14/20 21:43 Effexor Xr PO 75 mg HS OWEN Administration Venlafaxine HCl 150 mg 05/15/20 09:00 Effexor Xr PO DAILY OWEN Objective - Vital Signs Vital signs: Vital Signs Temp 97.8 F 05/15/20 06:12 Pulse 89 05/15/20 07:55 Resp 21 05/15/20 08:33 BP 135/81 05/15/20 08:33 Pulse Ox 97 05/15/20 08:33 Intake & Output 05/14/20 05/15/20 05/15/20 18:59 06:59 18:59 Intake Total 36.287 94.076 Output Total 1400 1500 Balance -1363.713 -1405.924 Weight 45.359 kg 45.359 kg Intake: Intake, IV Titration 36.287 94.076 Amount Heparin Sod,Pork in 0.45% 36.287 94.076 NaCl 25,000 unit In 0.45 % NaCl 1 250ml.bag @ 12 UNITS/KG/HR 5.443 mls/hr IV .Q24H [facility] Rx#: [id number] Output: Urine 1400 1500 Other: Voiding Method Indwelling Catheter - Exam GENERAL: The patient is alert and oriented x3, not in any acute distress. Well developed, well nourished. HEENT: Pupils are round and equally reacting to light. EOMI. No scleral icterus. No conjunctival pallor. Normocephalic, atraumatic. No pharyngeal erythema. No thyromegaly. CARDIOVASCULAR: S1 and S2 present. No murmurs, rubs, or gallops. -PULMONARY: Chest is clear to auscultation, no wheezing. Bilateral basal crepitations ABDOMEN: Soft, nontender, nondistended, normoactive bowel sounds. No palpable organomegaly. MUSCULOSKELETAL: No joint swelling or deformity. EXTREMITIES: No cyanosis, clubbing, or pedal edema. NEUROLOGICAL: Gross neurological examination did not reveal any focal deficits. SKIN: No rashes. no petechiae. - Labs CBC & Chem 7: 05/15/20 06:22 05/15/20 06:22 Labs: Abnormal Lab Results - Last 24 Hours (Table) 05/14/20 05/14/20 05/14/20 Range/Units 11:33 11:33 11:33 WBC 14.0 H (3.8-10.6) k/uL MCV 102.2 H (80.0-100.0) fL Neutrophils # 13.0 H (1.3-7.7) k/uL Lymphocytes # 0.5 L (1.0-4.8) k/uL APTT 21.9 L (22.0-30.0) sec ABG pH (7.35-7.45) ABG pCO2 (35-45) mmHg ABG pO2 (83-108) mmHg ABG O2 Saturation (94-97) % VBG pH (7.31-7.41) VBG HCO3 (24-28) mmol/L Chloride (98-107) mmol/L BUN (7-17) mg/dL Creatinine (0.52-1.04) mg/dL Glucose (74-99) mg/dL Calcium (8.4-10.2) mg/dL AST (14-36) U/L Troponin I 0.704 H* (0.000-0.034) ng/mL HDL Cholesterol (40-60) mg/dL 05/14/20 05/14/20 05/14/20 Range/Units 11:55 12:37 14:35 WBC (3.8-10.6) k/uL MCV (80.0-100.0) fL Neutrophils # (1.3-7.7) k/uL Lymphocytes # (1.0-4.8) k/uL APTT (22.0-30.0) sec ABG pH (7.35-7.45) ABG pCO2 (35-45) mmHg ABG pO2 (83-108) mmHg ABG O2 Saturation (94-97) % VBG pH 7.30 L (7.31-7.41) VBG HCO3 23 L (24-28) mmol/L Chloride 108 H (98-107) mmol/L BUN (7-17) mg/dL Creatinine 0.45 L (0.52-1.04) mg/dL Glucose 165 H (74-99) mg/dL Calcium 8.2 L (8.4-10.2) mg/dL AST 50 H (14-36) U/L Troponin I 0.667 H* (0.000-0.034) ng/mL HDL Cholesterol (40-60) mg/dL 05/14/20 05/14/20 05/15/20 Range/Units 15:16 17:20 06:22 WBC (3.8-10.6) k/uL MCV (80.0-100.0) fL Neutrophils # (1.3-7.7) k/uL Lymphocytes # (1.0-4.8) k/uL APTT (22.0-30.0) sec ABG pH 7.26 L (7.35-7.45) ABG pCO2 51 H (35-45) mmHg ABG pO2 78 L (83-108) mmHg ABG O2 Saturation 93.9 L (94-97) % VBG pH (7.31-7.41) VBG HCO3 (24-28) mmol/L Chloride (98-107) mmol/L BUN 18 H (7-17) mg/dL Creatinine (0.52-1.04) mg/dL Glucose 149 H (74-99) mg/dL Calcium (8.4-10.2) mg/dL AST (14-36) U/L Troponin I 0.534 H* (0.000-0.034) ng/mL HDL Cholesterol 62 H (40-60) mg/dL 05/15/20 05/15/20 Range/Units 06:22 08:41 WBC 16.8 H (3.8-10.6) k/uL MCV 100.4 H (80.0-100.0) fL Neutrophils # 14.6 H (1.3-7.7) k/uL Lymphocytes # 0.8 L (1.0-4.8) k/uL APTT 32.1 H (22.0-30.0) sec ABG pH (7.35-7.45) ABG pCO2 (35-45) mmHg ABG pO2 (83-108) mmHg ABG O2 Saturation (94-97) % VBG pH (7.31-7.41) VBG HCO3 (24-28) mmol/L Chloride (98-107) mmol/L BUN (7-17) mg/dL Creatinine (0.52-1.04) mg/dL Glucose (74-99) mg/dL Calcium (8.4-10.2) mg/dL AST (14-36) U/L Troponin I (0.000-0.034) ng/mL HDL Cholesterol (40-60) mg/dL Assessment and Plan Assessment: Acute hypoxic respiratory distress Acute dyspnea, possible secondary to acute CHF versus pneumonia. Check for e chocardiogram Paroxysmal A. fib/flutter on Eliquis at home elevated troponin, mostly secondary to her heart disease and arrhythmia. Rule out coronary syndrome per cardiology Nicotine dependence Hypertension Plan: This is a pleasant 59 years old female who presents with respiratory distress, possible pneumonia versus CHF. Continue with a breathing treatment, monitor oxygen and respiratory distress closely. Pulmonary consult. Cardiology consult. Continue with heparin drip and Cardizem drip. continue with Lasix. Follow-up echocardiogram. sputum culture. Continue with antibiotics. Check urine analysis and discontinue Rich catheter Labs and medication were reviewed.. Continue same treatment. Continue with symptomatic treatment. Resume home medication. Monitor lytes and vitals. DVT and GI prophylaxis. Further recommendations of the clinical course of the patient DVT prophylaxis: heparin GI Prophylaxis: Pepcid PT/OT: Pending Prognosis is guarded
[2020-05-15] MEDS: hydrOXYzine HCL 25 MG TAB PO SCH ×2 (11:08→21:40)
[2020-05-15] MEDS: VENLAFAXINE HCL ER 75 MG CAP PO SCH (11:09)
[2020-05-15] MEDS: VENLAFAXINE HCL ER 150 MG CAP PO SCH (11:18)
[2020-05-15 11:41] LABS: Appearance,Urine Clear (Clear); Bilirubin,Urine Negative (Negative); Blood,Urine Negative (Negative); Color,Urine Colorless; Glucose,Urine (UA) Negative (Negative); Ketones,Urine Negative (Negative); Leukocyte Esterase,Urine Small (Negative); Nitrite,Urine Negative (Negative); PH, Urine 5.5 (5.0-8.0); Protein,Urine Negative (Negative); RBC,Urine 2 /hpf (0-5); Specific Gravity,Urine 1.006 (1.001-1.035); Urobilinogen,Urine <2.0 mg/dL (<2.0); WBC,Urine 1 /hpf (0-5)
--- NOTE | 2020-05-15 12:01 | ECHOF ---
Referral Reason: MEASUREMENTS -------- HEIGHT: 157.5 cm WEIGHT: 45.4 kg BP: RVIDd: 2.5 cm (< 3.3) IVSd: 1.3 cm (0.6 - 1.1) LVIDd: 4.8 cm (3.9 - 5.3) LVPWd: 1.3 cm (0.6 - 1.1) IVSs: 2.1 cm LVIDs: 2.2 cm LVPWs: 2.2 cm LAESV Index (A-L): 87.69 ml/m Ao Diam: 2.8 cm (2.0 - 3.7) AV Cusp: 2.2 cm (1.5 - 2.6) LA Diam: 5.4 cm (2.7 - 3.8) MV EXCURSION: 16.312 mm (> 18.000) MV EF SLOPE: 47 mm/s (70 - 150) EPSS: 0.3 cm MV E Nikolai: 1.71 m/s MV DecT: 217 ms MV A Nikolai: 0.42 m/s MV E/A Ratio: 4.11 AR PHT: 474 ms RAP: 5.00 mmHg RVSP: 45.03 mmHg FINDINGS -------- Sinus rhythm with extra systolic beats. This was a technically good study. The left ventricular size is normal. There is mild concentric left ventricular hypertrophy. Overa ll left ventricular systolic function is normal with, an EF between 55 - 60 %. The right ventricle is normal in size. LA is severely dilated >40 ml/m2 RA appears enlarged. Aortic valve is trileaflet and is mildly thickened. There is mild aortic regurgitation. The mitral valve leaflets are mildly thickened. Mild mitral annular calcification present. Modera [id number] mitral regurgitation is present. The peak and mean MV gradients are 21.44mmHg 10.24mm Hg as measured by doppler. Ewjm-hy-jhiqnxac mitral stenosis. The tricuspid valve appears structurally normal. Mild tricuspid regurgitation present. There is m ild pulmonary hypertension. The right ventricular systolic pressure, as measured by Doppler, is 45. 03mmHg. Trace/mild (physiologic) pulmonic regurgitation. The aortic root size is normal. Normal inferior vena cava with normal inspiratory collapse consistent with estimated right atrial pre ssure of 5 mmHg. There is no pericardial effusion. CONCLUSIONS -------- 1. Sinus rhythm with extra systolic beats. 2. This was a technically good study. 3. The left ventricular size is normal. 4. There is mild concentric left ventricular hypertrophy. 5. Overall left ventricular systolic function is normal with, an EF between 55 - 60 %. 6. The right ventricle is normal in size. 7. LA is severely dilated >40 ml/m2 8. RA appears enlarged. 9. Aortic valve is trileaflet and is mildly thickened. 10. There is mild aortic regurgitation. 11. The mitral valve leaflets are mildly thickened. 12. Mild mitral annular calcification present. 13. Dtauvcch-[id number]-zfojrr mitral regurgitation is present. 14. The peak and mean MV gradients are 21.44mmHg 10.24mmHg as measured by doppler. 15. Hjee-wp-[id number] mitral stenosis. 16. The tricuspid valve appears structurally normal. 17. Mild tricuspid regurgitation present. 18. There is mild pulmonary hypertension. 19. The right ventricular systolic pressure, as measured by Doppler, is 45.03mmHg. 20. Trace/mild (physiologic) pulmonic regurgitation. 21. The aortic root size is normal. 22. Normal inferior vena cava with normal inspiratory collapse consistent with estimated right atrial pressure of 5 mmHg. 23. There is no pericardial effusion. CABIN SUPERVISOR: Britany Green RDCS
--- NOTE | 2020-05-15 12:01 | XR ---
EXAMINATION TYPE: XR chest 1V portable DATE OF EXAM: 05/15/2020 HISTORY: Shortness of breath. COMPARISON: 05/14/2020 TECHNIQUE: Single view of the chest is submitted. FINDINGS: Demonstrated are scattered senescent parenchymal change. There is improved pulmonary venous congestion with persistent patchy basilar opacities and improved t iny effusions. The heart is stable. Hilar and mediastinal structures are within normal limits. Degenerative changes are seen of the dorsal spine. IMPRESSION: 1. There is improved pulmonary venous congestion with persistent patchy basilar opacities and improv ed tiny effusions. The heart is stable.
[2020-05-15] MEDS: AZITHROMYCIN 500 MG in SODIUM CHLORIDE 0.9% 250 ML IVPB SCH (12:42)
[2020-05-15 14:27] VITALS: BMI 18.3
--- NOTE | 2020-05-15 14:30 | P.CNPUL ---
History of Present Illness Consult date: 05/15/20 Requesting physician: Walter E Geoffrey Reason for consult: dyspnea Chief complaint: Shortness of breath and chest pain History of present illness: 59-year-old white female patient with past medical history of chronic atrial fibrillation on Eliquis and oral Cardizem, hypertension, current every day smoker, previous episodes of pneumonia, bilateral cataracts, vertigo, previous episodes of GI bleeding, history of cardiomyopathy, valvular heart disease involving the tricuspid valve regurgitation, dementia, depression, and reported history of a "spot on the lung". Patient was transferred over from [facility], where she presented for evaluation of 2 day history of shortness of breath and chest discomfort. Patient was initially placed on BiPAP. She was treated with breathing treatments, IV steroids. 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 She denies ever being diagnosed with COPD before. He carries [id number] smoking history, recently quit. Apparently patient also follows with cancer Center in [place] to rule out lung cancer, and she was told that is not malignant and to follow-up on outpatient basis. Patient apparently has not been able to follow-up because of recent coronavirus pandemic. Chest x-ray showed bilateral pleural effusions, bibasilar atelectasis and diffuse interstitial pattern consistent with acute exacerbation of CHF, possibility of pneumonia is difficult to exclude. EKG showed atrial flutter with slight tachycardia and the rate of 103 BPM. ProBNP was 3790, patient was started on IV Lasix, she has diuresed, currently off BiPAP support, and room air pulse ox is 94%, she is feeling significantly better. Repeat chest x-ray is pen ding, she denies any fever or chills, denies any chest pain, coronavirus PCR was negative. Echocardiogram was completed showing normal LV function with an EF of 55-60%, moderate to severe mitral regurg, [id number] mitral stenosis, mild tricuspid regurg, mild pulmonary hypertension with right ventricular systolic pressure of 45 mmHg. Presentation blood work showed white blood cell count of 14.0, hemoglobin of 13.3, d-dimer is negative at 0.28. Sodium is 137, potassium 4.7, chloride is 108, CO2 is 22, BUN is 14, creatinine 0.45, plasma lactic acid was 1.4, troponins were elevated at 0.704, 0.667, and 0.534, proBNP was 3790. Blood gas upon transfer from [place] showed pO2 of 78, pCO2 is 51, and pH of 7.26, consistent with acute hypercapnic and hypoxemic respiratory failure due to acute exacerbation of CHF with preserved left ventricular systolic function and possibly exacerbation of COPD Review of Systems All systems: negative Constitutional: Denies chills, Denies fever Eyes: denies blurred vision, denies pain Ears, nose, mouth and throat: Denies headache, Denies sore throat Cardiovascular: Reports chest pain, Denies shortness of breath Respiratory: Reports dyspnea, Denies cough Gastrointestinal: Denies abdominal pain, Denies diarrhea, Denies nausea, Denies vomiting Genitourinary: Denies dysuria, Denies hematuria Musculoskeletal: Denies myalgias Integumentary: Denies pruritus, Denies rash Neurological: Denies numbness, Denies weakness Psychiatric: Denies anxiety, Denies depression Endocrine: Denies fatigue, Denies weight change Past Medical History Past Medical History: Atrial Fibrillation, Eye Disorder, GI Bleed, Hypertension, Memory Impairment, Pneumonia Additional Past Medical History / Comment(s): Pt has spot on lung-unable to follow up as yet d/t covid, murmur, bilateral cataracts, vertigo if stands too quickly, occasional bilateral tinnitis, past blood in stool, occasional low back spasms, record sent from [facility] lists, cardiomyopathy/tricuspid valve regurg/dementia/tachybrady/thought disorder but pt does not recall these. PT IS A JEHOVAH WITNESS-NO BLOOD PRODUCTS. History of Any Multi-Drug Resistant Organisms: None Reported Additional Past Surgical History / Comment(s): right hand surgery d/t dog bite/pins since removed Past Anesthesia/Blood Transfusion Reactions: No Reported Reaction Additional Past Anesthesia/Blood Transfusion Reaction / Comment(s): PT IS A JEHOVAH WITNESS-NO BLOOD PRODUCTS. Smoking Status: Former smoker - Past Family History Father Additional Family Medical History / Comment(s): Father was an alcoholic. He of a brain tumor. He was schizophrenic. Mother Family Medical History: Diabetes Mellitus Additional Family Medical History / Comment(s): Mother lived to be 78yrs old. Medications and Allergies Home Medications Medication Instructions Recorded Confirmed Type Apixaban [Eliquis] 5 mg PO BID 05/14/20 05/14/20 History Diltiazem HCl [Diltiazem HCl 24Hr 180 mg PO HS 05/14/20 05/14/20 History ER (CD)] Fish Oil(Unknown) 1 cap PO DAILY 05/14/20 05/14/20 History Lisinopril [Zestril] 10 mg PO HS 05/14/20 05/14/20 History Multivitamins, Thera [Multivitamin 1 tab PO DAILY 05/14/20 05/14/20 History (formulary)] Oxybutynin Xl [Ditropan XL] 5 mg PO DAILY 05/14/20 05/14/20 History Venlafaxine HCl ER [Effexor Xr] 75 mg PO HS 05/14/20 05/14/20 History Venlafaxine HCl ER [Effexor Xr] 150 mg PO DAILY 05/14/20 05/14/20 History hydrOXYzine HCL 25 mg PO BID 05/14/20 05/14/20 History Allergies Allergy/AdvReac Type Severity Reaction Status Date / Time metoprolol AdvReac Rapid Verified 05/14/20 12:04 Heart Rate Physical Exam Vitals: Vital Signs Temp Pulse Pulse Resp BP BP Pulse Ox 05/15/20 11:42 98.8 F 98 18 141/69 94 L 05/15/20 10:00 98.8 F 101 H 18 130/75 98 05/15/20 08:33 21 135/81 97 05/15/20 07:55 89 05/15/20 07:43 88 05/15/20 07:09 109 H 18 144/97 05/15/20 06:58 113 H 18 149/90 97 05/15/20 06:12 97.8 F 120 H 20 146/98 96 05/15/20 03:00 120 H 18 154/87 98 05/15/20 02:00 90 18 96 05/15/20 00:16 90 18 129/83 96 05/14/20 22:30 110 H 18 116/80 96 05/14/20 21:24 98 F 80 18 118/89 96 05/14/20 21:07 117 H 18 05/14/20 20:56 97 20 05/14/20 20:25 90 18 115/70 94 L 05/14/20 19:30 97.3 F L 86 18 123/84 97 05/14/20 18:00 90 20 137/94 99 05/14/20 17:00 95 20 97 05/14/20 16:00 82 20 111/85 97 05/14/20 15:00 100 20 116/87 97 05/14/20 14:18 111 H 20 101/78 96 Intake and Output 05/14/20 05/15/20 05/15/20 22:59 06:59 14:59 Intake Total 36.287 94.076 Output Total 1400 1500 Balance -1363.713 -1405.924 Intake: Intake, IV Titration 36.287 94.076 Amount Heparin Sod,Pork in 0.45% 36.287 94.076 NaCl 25,000 unit In 0.45 % NaCl 1 250ml.bag @ 12 UNITS/KG/HR 5.443 mls/hr IV .Q24H [facility] Rx#: [id number] Output: Urine 1400 1500 Other: Voiding Method Indwelling Catheter Weight 45.359 kg GENERAL EXAM: Alert, very pleasant, cachectic looking 59-year-old white female, currently off BiPAP support and on 3 L of oxygen reports feeling much better com fortable in no apparent distress. HEAD: Normocephalic/atraumatic. EYES: Normal reaction of pupils, equal size. Conjunctiva pink, sclera white. NOSE: Clear with pink turbinates. THROAT: No erythema or exudates. NECK: No masses, no JVD, no thyroid enlargement, no adenopathy. CHEST: No chest wall deformity. Symmetrical expansion. LUNGS: Equal air entry with basilar crackles, but no wheeze, rhonchi or dullness. CVS: Irregular rate and rhythm, normal S1 and S2, no gallops, no murmurs, no rubs ABDOMEN: Soft, nontender. No hepatosplenomegaly, normal bowel sounds, no guarding or rigidity. EXTREMITIES: No clubbing, no edema, no cyanosis, 2+ pulses and upper and lower extremities. MUSCULOSKELETAL: Muscle strength and tone normal. SPINE: No scoliosis or deformity SKIN: No rashes CENTRAL NERVOUS SYSTEM: Alert and oriented -3. No focal deficits, tone is normal in all 4 extremities. PSYCHIATRIC: Alert and oriented -3. Appropriate affect. Intact judgment and insight. Results - Laboratory Findings CBC and BMP: 05/15/20 06:22 05/15/20 06:22 ABG ABG pH 7.26 (7.35-7.45) L 05/14/20 15:16 ABG pCO2 51 mmHg (35-45) H 05/14/20 15:16 ABG pO2 78 mmHg (83-108) L 05/14/20 15:16 ABG O2 Saturation 93.9 % (94-97) L 05/14/20 15:16 PT/INR, D-dimer PT 10.0 sec (9.0-12.0) 05/14/20 11:33 INR 1.0 (<1.2) 05/14/20 11:33 D-Dimer 0.28 mg/L FEU (<0.60) 05/14/20 11:33 Abnormal lab findings: Abnormal Labs 05/14/20 05/14/20 05/14/20 11:33 11:33 11:33 WBC 14.0 H MCV 102.2 H Neutrophils # 13.0 H Lymphocytes # 0.5 L APTT 21.9 L ABG pH ABG pCO2 ABG pO2 ABG O2 Saturation VBG pH VBG HCO3 Chloride BUN Creatinine Glucose Calcium AST Troponin I 0.704 H* HDL Cholesterol Ur Leukocyte Esterase 05/14/20 05/14/20 05/14/20 11:55 12:37 14:35 WBC MCV Neutrophils # Lymphocytes # APTT ABG pH ABG pCO2 ABG pO2 ABG O2 Saturation VBG pH 7.30 L VBG HCO3 23 L Chloride 108 H BUN Creatinine 0.45 L Glucose 165 H Calcium 8.2 L AST 50 H Troponin I 0.667 H* HDL Cholesterol Ur Leukocyte Esterase 05/14/20 05/14/20 05/15/20 15:16 17:20 06:22 WBC MCV Neutrophils # Lymphocytes # APTT ABG pH 7.26 L ABG pCO2 51 H ABG pO2 78 L ABG O2 Saturation 93.9 L VBG pH VBG HCO3 Chloride BUN 18 H Creatinine Glucose 149 H Calcium AST Troponin I 0.534 H* HDL Cholesterol 62 H Ur Leukocyte Esterase 05/15/20 05/15/20 05/15/20 06:22 08:41 10:34 WBC 16.8 H MCV 100.4 H Neutrophils # 14.6 H Lymphocytes # 0.8 L APTT 32.1 H ABG pH ABG pCO2 ABG pO2 ABG O2 Saturation VBG pH VBG HCO3 Chloride BUN Creatinine Glucose Calcium AST Troponin I HDL Cholesterol Ur Leukocyte Esterase Small H - Diagnostic Findings Chest x-ray: report reviewed, image reviewed Assessment and Plan Plan: Assessment: #1. Acute exacerbation of chronic congestive heart failure with preserved LV function and EF of 55-60% #2. A. fib with RVR, likely on Cardizem infusion #3. Rule out possibility of pneumonia, patient is on a combination of azithromycin and Rocephin #4. History of paroxysmal atrial fibrillation/atrial flutter on Eliquis #5. Valvular heart disease, moderate to severe mitral regurgitation, yyvb-[id number]-qovtpoyc mitral stenosis, mild TR, and mild pulmonary hypertension with right-sided pressures of 45 mmHg, mild concentric LVH, and preserved left ventricle systolic function with an EF of 55-60% #6. Acute hypoxic and hypercapnic respiratory failure related to fluid overload, acute exacerbation of diastolic CHF, improved with BiPAP support, is currently back on room air after diuresis #7. Suspect underlying COPD, the severity of which is unknown at this time #8. History of pulmonary nodule, which was reportedly not malignant, patient follows at the cancer center in [place] #9. 34 [id number]-[id number] smoking history, recently in remission #10. Hypertension #11. Elevated troponin, cardiology has been consulted, no reported chest pain, rule out coronary syndrome Plan: Continue IV diuretics for another 24 hours, we'll switch to oral diuretic starting tomorrow, today's chest x-ray has been reviewed showing improved pulmonary venous congestion with persistent patchy basilar opacities and improved tiny pleural effusions. We'll send a pro-calcitonin level, will continue empiric antibiotic coverage in the form of azithromycin and Rocephin, patient is afebrile, coronavirus PCR was negative. Patient is off BiPAP support, breathing easier, she is back on room air, she denies any chest discomfort, she is awaiting evaluation by cardiology for elevated troponins. Remains in atrial flutter, slightly tachycardic with a rate of 102-104 BPM, breathing easier, and she is inquiring about going home. From pulmonary perspective patient could be considered for discharge as long as she has been cleared by cardiology. We'll obtain high resolution CT to check the pulmonary nodule mentioned in the history. I performed a history & physical examination of the patient and discussed their management with my nurse practitioner, aCrla Tee. I reviewed the nurse practitioner's note and agree with the documented findings and plan of care. Lung sounds are positive for bibasilar crackles. The findings and the impression was discussed with the patient. I attest to the documentation by the nurse practitioner. Time with Patient: Greater than 30
--- NOTE | 2020-05-15 15:25 | CONS ---
CONSULTATION CHIEF COMPLAINT: Shortness of breath and atrial fibrillation with rapid ventricular rate. Nury is a 59-year-old lady with history of atrial fibrillation, hypertension, COPD, who is admitted to hospital with shortness of breath and mild chest pain on and off. She has coughed very little phlegm. Denies any fever or chills. She has not had any travel. She has stayed home over the last several months. She has been trying to quit smoking, but she is a smoker at the moment. Her chest x-ray on initial presentation showed bilateral pleural effusions with infiltrate. EKG shows atrial flutter with variable block. LABS: Labs show a hemoglobin of 12.8. Platelet count is 309. Potassium is 4.4. Troponin is elevated at 0.7, 0.6 and 0.5. Blood gases show a pH of 7.2, pCO2 of 51, PO2 of 78. PAST MEDICAL HISTORY: Past medical history is significant for COPD, hypertension, paroxysmal atrial fibrillation. CURRENT MEDICATIONS: Current medications include Effexor, Ditropan, Zestril, diltiazem and Eliquis. ALLERGIES: METOPROLOL. FAMILY HISTORY: Negative for premature coronary artery disease. SOCIAL HISTORY: Negative for current smoking, EtOH abuse or drug abuse. REVIEW OF SYSTEMS: HEENT is unremarkable. CARDIAC: As described above. RESPIRATORY: As described above. GI: Negative. GENITOURINARY: Negative. ALLERGY: Negative. IMMUNOLOGY: Negative. SKIN: Negative. MUSCULOSKELETAL: Significant for arthritis. PSYCHOSOCIAL: Negative. DERMATOLOGY: Negative. CONSTITUTIONAL: Negative. ONCOLOGICAL: Negative. 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 Rest of the system review is not relevant. PHYSICAL EXAMINATION: Comfortable at rest. Heart rate is 88 beats per minute. Blood pressure is 135/82, respiratory rate 18. There is no jugular venous distention. Carotid upstroke is normal. There is no bruit. Chest exam reveals bilateral rhonchi. Heart exam reveals first and second heart sounds, irregular rhythm and a systolic murmur at the apex. Abdomen is soft. Examination of extremities did not reveal any edema. Peripheral pulses are felt. LABS: Labs show that the hemoglobin is 12.8, platelet count is 309, potassium is 4.4. Troponin is elevated. ASSESSMENT: 1. Chronic obstructive pulmonary disease exacerbation. 2. Respiratory failure. 3. Elevated troponin, probably secondary to respiratory failure and hypoxia. 4. Typical atrial flutter with rapid ventricular rate. PLAN: I will continue the patient on current medications, obtain a 2D echo to assess her LV function and wall motion, and decide on further course of action based on how she evolves. ALIX / DAY: [id number] /
[2020-05-15] MEDS ORDERED: ALPRAZolam 0.25 MG TAB PO PRN (15:27)
[2020-05-15] MEDS: NICOTINE 14MG/24HR PATCH TRANSDERM SCH (15:42)
[2020-05-15 17:00] LABS: Glucose,Whole Blood 136 mg/dL (75-99)
--- NOTE | 2020-05-15 17:02 | CT ---
EXAMINATION TYPE: High resolution CT chest DATE OF EXAM: 05/15/2020 COMPARISON: Radiographs 05/15/2020 HISTORY: 59-year-old female pulmonary nodules TECHNIQUE: Contiguous high-resolution axial scanning of the chest with 1 mm slice thickness and 1 cm gap without IV contrast per HRCT protocol. Both prone and supine imaging was utilized. CT DLP: 376.8 mGycm Automated exposure control for dose reduction was used. FINDINGS: The heart is enlarged without pericardial effusion. Dense mitral annular calcifications. Left atrial dilatation. Mild aneurysm ascending aorta 4.0 cm. Mild atherosclerotic arch calcifications. There may be bovine c onfiguration to the aortic arch. Borderline enlarged 1.0 cm precarinal lymph node is nonspecific. Mild centrilobular emphysema. Extensive punctate centrilobular nodularity. Small bilateral pleural effusions. This seems to be volume loss/consolidation along the medial lung b ases which persists even on the prone imaging. Posteriorly projecting gastric fundal diverticulum measuring 4.1 cm. Bones: Slight levoconvex curvature of the lumbar spine. IMPRESSION: 1. CARDIOMEGALY AND SMALL EFFUSIONS. CORRELATE FOR FLUID OVERLOAD STATE. 2. NUMEROUS PUNCTATE NODULES. DIFFERENTIAL CONSIDERATIONS INCLUDE MILIARY SPREAD OF ATYPICAL FUNGAL/M YCOBACTERIAL INFECTION, HYPERSENSITIVITY PNEUMONITIS, RESPIRATORY BRONCHIOLITIS, PULMONARY HEMOSIDERO SIS SUCH IN THE SETTING OF MITRAL STENOSIS, AND MILIARY SARCOIDOSIS. PNEUMOCONIOSIS USUALLY HAS AN UPPER LUNG PREDOMINANCE SO IS CONSIDERED LESS LIKELY. CORRELATE FOR ANY KNOWN PRIMARY TO EXCLUDE MIL IARY METASTASES. 3. SOME CHRONIC VOLUME LOSS/CONSOLIDATION AT THE MEDIAL BASILAR LOWER LOBES WHICH PERSISTS DESPITE SC ONE POSITIONING. 4. MILD ASCENDING AORTIC ANEURYSM AT 4.0 CM.
--- NOTE | 2020-05-15 19:03 | CDI ---
Documentation Clarification Form Date: 05/15/2020 06:28:46 PM From: Chio Galan RN, CCDS Admit Date: 05/14/2020 01:57:00 PM Patient Name: Nury Mccord Visit Number: [id number] ATTENTION: The Clinical Documentation Specialists (CDI) and [facility] Coding Staff appreciate your assistance in clarifying documentation. Please respond to the clarification below the line at the bottom and electronically sign. The CDI & [facility] Coding staff will review the response and follow-up if needed. Please note: Queries are made part of the Legal Health Record. If you have any questions, please contact the author of this message via ITS. Dr. Walter Hale Patient is noted to have a low BMI and is receiving nutritional supplements. Please provide clinical significance History/Risk Factors: Atrial Fib, HTN, Anxiety, acute hypoxic respiratory failure on BIPAP, Nicotine dependance Clinical Indicators: 05/14 H&P: "The patient is alert and awake, she is in significant respiratory distress needing BiPAP, thin built 05/15 Pulmonary Consult: "Alert, very pleasant, cachectic looking 59-year-old white female, currently off BiPAP support" Labs: WNL Current BMI: 18.3 Insufficient energy intake per dietary consult Weight Loss: of 5% per dietary consult Treatment: Dietary Consult: Completed 05/15 Supplements: Ensure TID, multivitamin Lab monitoring am daily In your professional opinion, can you please clarify if these findings signify one of the following conditions? Mild Protein-Calorie Malnutrition Moderate Protein-Calorie Malnutrition Severe Protein-Calorie Malnutrition Other condition, please specify Unable to determine (Last Revision: May 2019) Mild Protein-Calorie Malnutrition MTDD
[2020-05-15] MEDS: LISINOPRIL 10 MG TAB PO SCH (21:40)
[2020-05-15] MEDS: HEPARIN SOD,PORK IN 0.45% NACL 25,000 UNIT in 0.45% NACL 1 250ML.BAG IV SCH (21:41)
[2020-05-15] MEDS: DILTIAZEM 125 MG in SODIUM CHLORIDE 0.9% 100 ML IV SCH (23:57)
[2020-05-16] MEDS: DILTIAZEM 125 MG in SODIUM CHLORIDE 0.9% 100 ML IV SCH (05:42)
[2020-05-16] MEDS: SODIUM CHLORIDE 0.9% 1,000 ML IV SCH (05:43)
[2020-05-16 07:13] LABS: Basophils # (A) 0.1 k/uL (0-0.2); Basophils % (A) 0 %; Eosinophils # (A) 0.4 k/uL (0-0.7); Eosinophils % (A) 3 %; HCT 43.3 % (34.0-46.0); HGB 13.9 gm/dL (11.4-16.0); Lymphocytes # (A) 1.8 k/uL (1.0-4.8); Lymphocytes % (A) 11 %; MCH 31.8 pg (25.0-35.0); MCHC 32.1 g/dL (31.0-37.0); MCV 99.2 fL (80.0-100.0); Mean Platelet Volume 7.5; Monocytes # (A) 0.9 k/uL (0-1.0); Monocytes % (A) 6 %; Neutrophils # (A) 13.3 k/uL (1.3-7.7); Neutrophils % (A) 80 %; Platelet Count 295 k/uL (150-450); RBC 4.37 m/uL (3.80-5.40); WBC 16.6 k/uL (3.8-10.6)
[2020-05-16] MEDS: HEPARIN SODIUM,PORCINE 5,000 UNIT/ML 1 ML VIAL IV PRN (07:55)
[2020-05-16] MEDS: FUROSEMIDE 10 MG/ML 4 ML VIAL IV SCH (08:15)
[2020-05-16] MEDS: MULTIVITAMINS, THERA 1 EACH TAB PO SCH (08:16)
[2020-05-16] MEDS: NICOTINE 14MG/24HR PATCH TRANSDERM SCH (08:16)
[2020-05-16] MEDS: hydrOXYzine HCL 25 MG TAB PO SCH (08:16)
[2020-05-16] MEDS: VENLAFAXINE HCL ER 150 MG CAP PO SCH (08:16)
[2020-05-16] MEDS ORDERED: VERAPAMIL 40 MG TAB PO SCH (09:30)
[2020-05-16 09:42] VITALS: PULSE 77; RESP 18
[2020-05-16 12:04] VITALS: BP 140/78; TEMP 97.9
[2020-05-16] MEDS: AZITHROMYCIN 500 MG in SODIUM CHLORIDE 0.9% 250 ML IVPB SCH (12:32)
[2020-05-16] MEDS ORDERED: APIXABAN 5 MG TAB PO SCH (12:45)
--- NOTE | 2020-05-16 13:22 | P.PN ---
Subjective Progress Note Date: 05/16/20 Principal diagnosis: Shortness of breath, chest pain 59-year-old white female patient with past medical history of chronic atrial fibrillation on Eliquis and oral Cardizem, hypertension, current every day smoker, previous episodes of pneumonia, bilateral cataracts, vertigo, previous episodes of GI bleeding, history of cardiomyopathy, valvular heart disease involving the tricuspid valve regurgitation, dementia, depression, and reported history of a "spot on the lung". Patient was transferred over from [facility], where she presented for evaluation of 2 day history of shortness of breath and chest discomfort. Patient was initially placed on BiPAP. She was treated with breathing treatments, IV steroids. Patient does not follow with a pallet stone positioner. She denies ever being diagnosed with COPD before. He carries [id number] smoking history, recently quit. Apparently patient also follows with cancer Center in [place] to rule out lung cancer, and she was told that is not malignant and to follow-up on outpatient basis. Patient apparently has not been able to follow-up because of recent coronavirus pandemic. Chest x-ray showed bilateral pleural effusions, bibasilar atelectasis and diffuse interstitial pattern consistent with acute exacerbation of CHF, possibility of pneumonia is difficult to exclude. EKG showed atrial flutter with slight tachycardia and the rate of 103 BPM. ProBNP was 3790, patient was started on IV Lasix, she has diuresed, currently off BiPAP support, and room air pulse ox is 94%, she is feeling significantly better. Repeat chest x-ray is pending, she denies any fever or chills, denies any chest pain, coronavirus PCR was negative. Echocardiogram was completed showing normal LV function with an EF of 55-60%, moderate to severe mitral regurg, [id number]-vt-[id number] mitral stenosis, mild tricuspid regurg, mild pulmonary hypertension with right ventricular systolic pressure of 45 mmHg. Presentation blood work showed white blood cell count of 14.0, hemoglobin of 13.3, d-dimer is negative at 0.28. Sodium is 137, potassium 4.7, chloride is 108, CO2 is 22, BUN is 14, creatinine 0.45, plasma lactic acid was 1.4, troponins were elevated at 0.704, 0.667, and 0.534, proBNP was 3790. Blood gas upon transfer from [facility] showed pO2 of 78, pCO2 is 51, and pH of 7.26, consistent with acute hypercapnic and hypoxemic re spiratory failure due to acute exacerbation of CHF with preserved left ventricular systolic function and possibly exacerbation of COPD The patient is seen today 05/16/2020 in follow-up on the selective care unit. She is currently sitting up in bed. Awake and alert in no acute distress. Denies any worsening shortness of breath, cough or congestion. She is maintaining O2 saturations in the upper 90s on 3 L/m per nasal cannula. She's been afebrile. Hemodynamically stable. A culture reveals no growth to date. White count 16.6. Hemoglobin 13.9. She remains on a heparin drip. Computed t omography scan of the chest reveals evidence of cardiomegaly and small effusions with some fluid overload. There are numerous punctate nodules noted. Some chronic volume loss consolidation in the medial basilar lower lobes. Mild ascending aortic aneurysm measuring 4.0 cm. She remains on IV diuretics. Remains in a negative balance. Continued on bronchodilators, azithromycin and ceftriaxone. NicoDerm patch in place. Objective - Vital Signs Vital signs: Vital Signs Temp 97.9 F 05/16/20 12:00 Pulse 77 05/16/20 12:00 Resp 18 05/16/20 12:00 BP 140/78 05/16/20 12:00 Pulse Ox 98 05/16/20 12:00 Intake & Output 05/15/20 05/16/20 05/16/20 18:59 06:59 18:59 Intake Total 750.924 340.961 203.011 Output Total 1560 1200 100 Balance -809.076 -859.039 103.011 Weight 45.359 kg 45 kg Intake: Intake, IV Titration 300.924 40.961 83.011 Amount Diltiazem 125 mg In 155 Sodium Chloride 0.9% 100 ml @ 5 MG/HR 5 mls/hr IV .Q24H [facility] Rx#:[id number] Heparin Sod,Pork in 0.45% 145.924 40.961 83.011 NaCl 25,000 unit In 0.45 % NaCl 1 250ml.bag @ 12 UNITS/KG/HR 5.443 mls/hr IV .Q24H [facility] Rx#: [id number] Oral 450 300 120 Output: Urine 1500 1200 100 Post Void Residual 60 Other: Voiding Method Indwelling Catheter Toilet Toilet # Voids 3 1 - Exam GENERAL EXAM: Alert, very pleasant, cachectic looking 59-year-old female patient, on 3 L of oxygen reports feeling much better comfortable in no apparent distress. HEAD: Normocephalic/atraumatic. EYES: Normal reaction of pupils, equal size. Conjunctiva pink, sclera white. NOSE: Clear with pink turbinates. THROAT: No erythema or exudates. NECK: No masses, no JVD, no thyroid enlargement, no adenopathy. CHEST: No chest wall deformity. Symmetrical expansion. LUNGS: Equal air entry with basilar crackles, but no wheeze, rhonchi or dullness. CVS: Irregular rate and rhythm, normal S1 and S2, no gallops, no murmurs, no rubs ABDOMEN: Soft, nontender. No hepatosplenomegaly, normal bowel sounds, no g uarding or rigidity. EXTREMITIES: No clubbing, no edema, no cyanosis, 2+ pulses and upper and lower extremities. MUSCULOSKELETAL: Muscle strength and tone normal. SPINE: No scoliosis or deformity SKIN: No rashes CENTRAL NERVOUS SYSTEM: No focal deficits, tone is normal in all 4 extremities. PSYCHIATRIC: Alert and oriented -3. Appropriate affect. Intact judgment and insight. - Labs CBC & Chem 7: 05/16/20 06:48 05/15/20 06:22 Labs: Abnormal Lab Results - Last 24 Hours (Table) 05/15/20 05/15/20 05/15/20 Range/Units 15:39 15:39 16:54 WBC (3.8-10.6) k/uL Neutrophils # (1.3-7.7) k/uL APTT 59.4 H (22.0-30.0) sec POC Glucose (mg/dL) 136 H (75-99) mg/dL Procalcitonin 0.39 H (0.02-0.09) ng/mL 05/16/20 05/16/20 Range/Units 06:48 06:48 WBC 16.6 H (3.8-10.6) k/uL Neutrophils # 13.3 H (1.3-7.7) k/uL APTT 33.0 H (22.0-30.0) sec POC Glucose (mg/dL) (75-99) mg/dL Procalcitonin (0.02-0.09) ng/mL Microbiology - Last 24 Hours (Table) 05/14/20 11:55 Blood Culture - Preliminary Blood No Growth after 24 hours Assessment and Plan Assessment: #1. Acute exacerbation of chronic congestive heart failure with preserved LV function and EF of 55-60% #2. A. fib with RVR, likely on Cardizem infusion #3. Rule out possibility of pneumonia, patient is on a combination of azithromycin and Rocephin #4. History of paroxysmal atrial fibrillation/atrial flutter on Eliquis #5. Valvular heart disease, moderate to severe mitral regurgitation, gobe-qn-vfwvtjot mitral stenosis, mild TR, and mild pulmonary hypertension with right-sided pressures of 45 mmHg, mild concentric LVH, and preserved left ventricle systolic function with an EF of 55-60% #6. Acute hypoxic and hypercapnic respiratory failure related to fluid overload, acute exacerbation of diastolic CHF, improved with BiPAP support, is currently back on room air after diuresis #7. Suspect underlying COPD, the severity of which is unknown at this time #8. History of pulmonary nodule, which was reportedly not malignant, patient follows at the [facility] in [place] #9. 34 nigz-xhrr-ppov smoking history, recently in remission #10. Hypertension #11. Elevated troponin, cardiology has been consulted, no reported chest pain, rule out coronary syndrome Plan: The patient was seen and evaluated by Dr. Finley CAT scan reviewed She is cleared for discharge from the pulmonary standpoint Follow-up computed tomography scan of the chest in 3 months Follow-up in the cancer center in [place] Educated regarding the importance of complete smoking cessation NicoDerm patch in place Diuretics per cardiology I, the cosigning physician, performed a history & physical examination of the patient. Lungs sounds with faint crackles in the posterior bases. Maintaining good O2 saturations in the 90s on 3 L/m per nasal cannula. I discussed the assessment and plan of care with my nurse practitioner, Atiya Gibson. I attest to the above note as dictated by her.
--- NOTE | 2020-05-16 14:21 | P.PN ---
Subjective Progress Note Date: 05/16/20 This is a 59-year-old female with history of chronic atrial fibrillation, hypertension, nicotine dependence, previous episodes of pneumonia, previous GI bleed, cardiomyopathy, valvular heart disease involving the tricuspid valve, dementia, depression, was transferred here from [facility] where she initially presented with symptoms of shortness of breath. Patient was found to be in atrial flutter for which cardiology saw the patient yesterday. She continued to be on an IV Cardizem drip this morning which was discontinued. She was taking Cardizem CD 180 at home which we will increase to 240. We will also discontinue the IV heparin and resume the Eliquis 5 twice a day. Blood pressure 140/70 with a heart rate in the 70s, 98% on room air. White blood cell count 16.6, hemoglobin 13.9, platelet count 295. CAT scan of the chest showed evidence of cardiomegaly, small effusions, some fluid overload, numerous nodules noted. Chronic volume loss consolidation in the medial basal lower lobes. Reviewed by pulmonary. Echocardiogram with Doppler study revealed an ejection fraction of 55-60%, mild to moderate mitral stenosis, severe mitral regurgitation Objective - Vital Signs Vital signs: Vital Signs Temp 97.9 F 05/16/20 12:00 Pulse 77 05/16/20 12:00 Resp 18 05/16/20 12:00 BP 140/78 05/16/20 12:00 Pulse Ox 98 05/16/20 12:00 Intake & Output 05/15/20 05/16/20 05/16/20 18:59 06:59 18:59 Intake Total 750.924 340.961 203.011 Output Total 1560 1200 100 Balance -809.076 -859.039 103.011 Weight 45.359 kg 45 kg Intake: Intake, IV Titration 300.924 40.961 83.011 Amount Diltiazem 125 mg In 155 Sodium Chloride 0.9% 100 ml @ 5 MG/HR 5 mls/hr IV .Q24H [facility] Rx#:[id number] Heparin Sod,Pork in 0.45% 145.924 40.961 83.011 NaCl 25,000 unit In 0.45 % NaCl 1 250ml.bag @ 12 UNITS/KG/HR 5.443 mls/hr IV .Q24H [facility] Rx#: [id number] Oral 450 300 120 Output: Urine 1500 1200 100 Post Void Residual 60 Other: Voiding Method Indwelling Catheter Toilet Toilet # Voids 3 1 - Exam GENERAL EXAM: Alert, very pleasant, cachectic looking 59-year-old white female, comfortable in no apparent distress. HEAD: Normocephalic/atraumatic. EYES: Normal reaction of pupils, equal size. Conjunctiva pink, sclera white. NOSE: Clear with pink turbinates. THROAT: No erythema or exudates. NECK: No masses, no JVD, no thyroid enlargement, no adenopathy. CHEST: No chest wall deformity. Symmetrical expansion. LUNGS: Equal air entry with basilar crackles, but no wheeze, rhonchi or dullness. CVS: Irregular rate and rhythm, normal S1 and S2, no gallops, no murmurs, no rubs ABDOMEN: Soft, nontender. No hepatosplenomegaly, normal bowel sounds, no guarding or rigidity. EXTREMITIES: No clubbing, no edema, no cyanosis, 2+ pulses and upper and lower extremities. MUSCULOSKELETAL: Muscle strength and tone normal. SPINE: No scoliosis or deformity SKIN: No rashes CENTRAL NERVOUS SYSTEM: Alert and oriented -3. No focal deficits, tone is normal in all 4 extremities. PSYCHIATRIC: Alert and oriented -3. Appropriate affect. Intact judgment and insight. - Labs CBC & Chem 7: 05/16/20 06:48 05/15/20 06:22 Labs: Abnormal Lab Results - Last 24 Hours (Table) 05/15/20 05/15/20 05/15/20 Range/Units 15:39 15:39 16:54 WBC (3.8-10.6) k/uL Neutrophils # (1.3-7.7) k/uL APTT 59.4 H (22.0-30.0) sec POC Glucose (mg/dL) 136 H (75-99) mg/dL Procalcitonin 0.39 H (0.02-0.09) ng/mL 05/16/20 05/16/20 Range/Units 06:48 06:48 WBC 16.6 H (3.8-10.6) k/uL Neutrophils # 13.3 H (1.3-7.7) k/uL APTT 33.0 H (22.0-30.0) sec POC Glucose (mg/dL) (75-99) mg/dL Procalcitonin (0.02-0.09) ng/mL Microbiology - Last 24 Hours (Table) 05/14/20 11:55 Blood Culture - Preliminary Blood No Growth after 48 hours Assessment and Plan Plan: Assessment and plan: #1. Acute exacerbation of chronic congestive heart failure with preserved LV function and EF of 55-60% #2. A. fib with RVR, persistent #3. Rule out possibility of pneumonia, patient is on a combination of azithromycin and Rocephin #4. History of paroxysmal atrial fibrillation/ typicalatrial flutter on Eliquis #5. Valvular heart disease, moderate to severe mitral regurgitation, cbti-ew-[id number] mitral stenosis, mild TR, and mild pulmonary hypertension with right-sided pressures of 45 mmHg, mild concentric LVH, and preserved left ventricle systolic function with an EF of 55-60% #6. Acute hypoxic and hypercapnic respiratory failure related to fluid overload, acute exacerbation of diastolic CHF, improved with BiPAP support, is currently back on room air after diuresis #7. Suspect underlying COPD, the severity of which is unknown at this time #8. History of pulmonary nodule, which was reportedly not malignant, patient follows at the cancer center in [place] #9. 34 foqs-byug-xoae smoking history, recently in remission #10. Hypertension #11. Elevated troponin, likely related to atrial fibrillation with rapid ventricular response Plan From cardiology's perspective, patient may be able to be discharged home today. We will discontinue the IV Cardizem and start the patient on Cardizem 240 daily. Decrease the IV heparin and reinitiate Eliquis 5 twice a day. Follow-up appointment with the patient's ear machine operator post discharge. DNP note has been reviewed, I agree with a documented findings and plan of care. Patient was seen and examined.
--- NOTE | 2020-05-16 23:21 | P.DS ---
Providers Date of admission: 05/14/20 13:57 Attending physician: Walter Hale MD Consults: 05/14/20 14:03 Consult Physician Stat Consulting Provider: Luz Maria Finley Consult Reason/Comments: ICU mgmt, resp distress, chf, copd Do you want consulting provider notified?: Yes Consult Physician Urgent Consulting Provider: Cristina Gonzalez Consult Reason/Comments: Elevated trop, chf, aflutter Do you want consulting provider notified?: Yes Primary care physician: Stated None Hospital Course: Diagnoses: Acute hypoxic respiratory distress Acute dyspnea, possible secondary to acute CHF versus community acquired pneumonia. echocardiogram ejection fraction 55-60%, elevated pro-calcitonin 0.39. Negative d-dimer Moderate to severe mitral regurgitation with behr-co-jxrqdiga mitral stenosis Bilateral diffuse pulmonary punctate nodules, with wide differential diagnosis, patient will need follow-up as an outpatient Paroxysmal A. fib/flutter on Eliquis at home Elevated troponin, elevated by coal mine inspector and thought secondary to atrial fibrillation and hypoxia from her lung disease elevated troponin, mostly secondary to her heart disease and arrhythmia. Rule out coronary syndrome per cardiology Nicotine dependence Hypertension Hospital course: This is a pleasant 69 years old female with past medical history of paroxysmal atrial fibrillation/flutter on Eliquis, 40 years cigarette smoker, hypertension. She is a patient of Dr. Solano, she does not follow with coin teller and she is not been diagnosed with COPD before. Patient presents with acute dyspnea over 2 days associated with some coughing and clear phlegm no chest pain. Chest x-ray, showed diffuse interstitial nodular pattern suspicious for CHF versus diffuse pneumonia. Patient did not have fever but she has leukocytosis 14-16 K, she was treated with ceftriaxone and Zithromax. Also she received IV Lasix for suspected CHF, echocardiogram showed ejection fraction 55-60%. With moderate to severe mitral regurgitation and mild to moderate mitral stenosis. Patient has been evaluated also by coin teller and coal mine inspector. CT of the chest was ordered showing numerous punctate nodules, differential diagnoses including miliary fungal/mycobacterial infection, miliary spread of cancer, hypersensitivity pneumonitis, respiratory bronchiolitis, hemosiderosis associated with mitral stenosis, or miliary sarcoidosis. Patient's symptoms improved with no chest pain or dyspnea, cough and is controlled. Oxygen evaluated for home: pt dropped oxygen with exertion and home oxygen is provided with help of SW/CMx Patient was cleared for discharge by coin teller and coal mine inspector pt is discharged on augmentin , higher dose of cardizem ( pt states she has eliquis at home) and lasix. scripts are provided Problems and management plan were discussed with the patient and he verbalized understanding and acceptance Patient was found stable and can be discharged home however he needs follow-up as an outpatient. Patient was instructed to follow up with PCP within one week and patient agrees. pt agrees with appointment on 05/[address] Mora appointment on 06/07 and states she will follow up i explained to the pt the risks of her lung nodules including but not limited to infection and cancer and she verbalized understanding and acceptance to f/u with on her appointment date. also pt was instructed to f/u with [facility] and she agrees Gen: patient is a AAOx3, no distress CVS: S1-S2, RRR, no murmur -Lungs: B/L CTA, no wheezing. The lateral scattered regurgitation Abdomen: soft, no distention, no tenderness, positive bowel sounds Extremity: no leg edema or induration Time spent more than 35 minutes Patient Condition at Discharge: Stable Plan - Discharge Summary Discharge Rx Participant: No New Discharge Prescriptions: New Amoxicillin/Potassium Clav [Augmentin 875-125 Tablet] 1 tab PO Q12HR 7 Days #14 tab Diltiazem Cd [Cardizem CD] 240 mg PO DAILY #30 cap.er.24h Nicotine 14Mg/24Hr Patch [Habitrol] 1 patch TRANSDERM DAILY #7 patch Furosemide [Lasix] 40 mg PO DAILY 30 Days #30 tablet Continue Venlafaxine HCl ER [Effexor XR] 75 mg PO HS Venlafaxine HCl ER [Effexor XR] 150 mg PO DAILY Oxybutynin Xl [Ditropan XL] 5 mg PO DAILY Multivitamins, Thera [Multivitamin (formulary)] 1 tab PO DAILY hydrOXYzine HCL 25 mg PO BID Lisinopril [Zestril] 10 mg PO HS Apixaban [Eliquis] 5 mg PO BID Fish Oil(Unknown) 1 cap PO DAILY Discontinued Diltiazem HCl [Diltiazem HCl 24Hr ER (CD)] 180 mg PO HS Discharge Medication List Apixaban [Eliquis] 5 mg PO BID 05/14/20 [History] Fish Oil(Unknown) 1 cap PO DAILY 05/14/20 [History] Lisinopril [Zestril] 10 mg PO HS 05/14/20 [History] Multivitamins, Thera [Multivitamin (formulary)] 1 tab PO DAILY 05/14/20 [History] Oxybutynin Xl [Ditropan XL] 5 mg PO DAILY 05/14/20 [History] Venlafaxine HCl ER [Effexor XR] 75 mg PO HS 05/14/20 [History] Venlafaxine HCl ER [Effexor XR] 150 mg PO DAILY 05/14/20 [History] hydrOXYzine HCL 25 mg PO BID 05/14/20 [History] Amoxicillin/Potassium Clav [Augmentin 875-125 Tablet] 1 tab PO Q12HR 7 Days #14 tab 05/16/20 [Rx] Diltiazem Cd [Cardizem CD] 240 mg PO DAILY #30 cap.er.24h 05/16/20 [Rx] Furosemide [Lasix] 40 mg PO DAILY 30 Days #30 tablet 05/16/20 [Rx] Nicotine 14Mg/24Hr Patch [Habitrol] 1 patch TRANSDERM DAILY #7 patch 05/16/20 [Rx] Follow up Appointment(s)/Referral(s): Bety Ochoa NP [Other] - 1 Week (Office is currently closed, Please call to make an appointment within 1 week) Luz Maria Finley MD [STAFF PHYSICIAN] - 05/23/20 9:45 am [facility], [NON-STAFF] - Mark Mora MD [STAFF PHYSICIAN] - 06/07/20 3:45 pm Patient Instructions/Handouts: Heart Failure (GEN), A-fib (Atrial Fibrillation) (GEN), COPD (Chronic Obstructive Pulmonary Disease) (GEN) Activity/Diet/Wound Care/Special Instructions: Patient requires home oxygen at discharge secondary to chf/copd - ordered from [facility] - to be delivered tonight prior to discharge - [phone] PCP - Dr.Kari Xiomara Orozco - [phone] heart healthy diet activity is limited till you see your doctor we recommend you follow up with [facility] Discharge Disposition: HOME WITH HOME HEALTH SERVICES
[2020-05-17] MEDS ORDERED: DILTIAZEM CD 240 MG CAP.ER.24H PO SCH (09:00)
[2020-05-17] MEDS ORDERED: VERAPAMIL SR 180 MG TABLET.ER PO SCH (09:00)
[2020-05-17] MEDS ORDERED: AZITHROMYCIN 500 MG TAB PO SCH (12:00)
== END 2020-05-16 18:18 | disposition home health service (06) | DRG 291 ==
LOC: EC 11:00 → 2SICU 13:57 → 3SCARD 22:12
PROVIDERS: ADMIT Internal Medicine; ATTEND Internal Medicine
DX: I11.0 Hypertensive heart disease with heart failure (principal); J18.9 Pneumonia, unspecified organism; J96.01 Acute respiratory failure with hypoxia; J96.02 Acute respiratory failure with hypercapnia; I48.3 Typical atrial flutter; J44.1 Chronic obstructive pulmonary disease with (acute) exacerbation; I08.1 Rheumatic disorders of both mitral and tricuspid valves; F17.210 Nicotine dependence, cigarettes, uncomplicated; I50.43 Acute on chronic combined systolic (congestive) and diastolic (congestive) heart failure; F03.90 Unspecified dementia, unspecified severity, without behavioral disturbance, psychotic disturbance, mood disturbance, and anxiety; I27.20 Pulmonary hypertension, unspecified; F41.0 Panic disorder [episodic paroxysmal anxiety]; I48.0 Paroxysmal atrial fibrillation; I42.9 Cardiomyopathy, unspecified; I71.2 Thoracic aortic aneurysm, without rupture; Z20.828 Contact with and (suspected) exposure to other viral communicable diseases; R91.1 Solitary pulmonary nodule; Z79.899 Other long term (current) drug therapy; Z79.01 Long term (current) use of anticoagulants; Z88.8 Allergy status to other drugs, medicaments and biological substances; Z81.1 Family history of alcohol abuse and dependence; Z87.01 Personal history of pneumonia (recurrent); Z83.3 Family history of diabetes mellitus
CPT/HCPCS: 36415; 36600; 71045; 71250; 80048; 80053; 80061; 81001; 82803; 82805; 83605; 83735; 83880; 84145; 84484; 85025; 85379; 85610; 85730; 87040; 93005; 93306; 94640; 94660; 96361; 96365; 96366; 96368; 96375; 96376; 99291

== ENCOUNTER 2020-09-05 06:28 | Inpatient (IN) | payer MEDICARE, OTHER ==
--- NOTE | 2020-09-05 06:45 | ED ---
General Adult HPI - General Stated complaint: DAINA Time Seen by Provider: 09/05/20 06:35 Source: EMS, RN notes reviewed, old records reviewed Mode of arrival: EMS Limitations: no limitations - History of Present Illness Initial comments: This is a 59-year-old female presents emergency department as a transfer from [facility] with chief complaint of shortness of breath. Patient reportedly five-day history of increasing shortness of breath upon arrival she was found to be in acute respiratory distress with A. fib RVR. Patient does have a history of COPD, continues to smoke, A. fib on anticoagulants. Patient takes Eliquis 5 mg twice a day. Patient's was placed on BiPAP, given Lasix, Ativan, Cardizem with significant improvement. Patient states that she just feels tired she states her breathing feels improved. She has no complaints of chest pain. Patient has no complaint abdominal pain, extremity swelling, fever, chills. Patient did have CT of her chest which is negative for PE. There are COPD changes. Patient was also started on heparin by outside facility. - Related Data Home Medications Medication Instructions Recorded Confirmed Apixaban [Eliquis] 5 mg PO BID 05/14/20 05/14/20 Fish Oil(Unknown) 1 cap PO DAILY 05/14/20 05/14/20 Multivitamins, Thera [Multivitamin 1 tab PO DAILY 05/14/20 05/14/20 (formulary)] Oxybutynin Xl [Ditropan XL] 5 mg PO DAILY 05/14/20 05/14/20 Venlafaxine HCl ER [Effexor XR] 75 mg PO HS 05/14/20 05/14/20 Venlafaxine HCl ER [Effexor XR] 150 mg PO DAILY 05/14/20 05/14/20 hydrOXYzine HCL 25 mg PO BID 05/14/20 05/14/20 lisinopriL [Zestril] 10 mg PO HS 05/14/20 05/14/20 Previous Rx's Medication Instructions Recorded Amoxicillin/Potassium Clav 1 tab PO Q12HR 7 Days #14 tab 05/16/20 [Augmentin 875-125 Tablet] Diltiazem Cd [Cardizem CD] 240 mg PO DAILY #30 cap.er.24h 05/16/20 Furosemide [Lasix] 40 mg PO DAILY 30 Days #30 tablet 05/16/20 Nicotine 14Mg/24Hr Patch [Habitrol] 1 patch TRANSDERM DAILY #7 patch 05/16/20 Allergies Allergy/AdvReac Type Severity Reaction Status Date / Time metoprolol AdvReac Rapid Verified 09/05/20 06:47 Heart Rate Review of Systems ROS Statement: Those systems with pertinent positive or pertinent negative responses have been documented in the HPI. ROS Other: All systems not noted in ROS Statement are negative. Past Medical History Past Medical History: Atrial Fibrillation, Eye Disorder, GI Bleed, Hypertension, Memory Impairment, Pneumonia Additional Past Medical History / Comment(s): Pt has spot on lung-unable to follow up as yet d/t covid, murmur, bilateral cataracts, vertigo if stands too quickly, occasional bilateral tinnitis, past blood in stool, occasional low back spasms, record sent from [facility] lists, cardiomyopathy/tricuspid valve regurg/dementia/tachybrady/thought disorder but pt does not recall these. PT IS A JEHOVAH WITNESS-NO BLOOD PRODUCTS. History of Any Multi-Drug Resistant Organisms: None Reported Additional Past Surgical History / Comment(s): right hand surgery d/t dog bite/pins since removed Past Anesthesia/Blood Transfusion Reactions: No Reported Reaction Additional Past Anesthesia/Blood Transfusion Reaction / Comment(s): PT IS A JEHOVAH WITNESS-NO BLOOD PRODUCTS. Past Psychological History: Anxiety, Depression Additional Psychological History / Comment(s): Pt resides with her son. She uses no assistive device. She does not drive, her sister is helpful to her and takes her to appts. Pt states she has had increased depression over past year after her son , she denies any thoughts/plans of suicide. Past Alcohol Use History: None Reported Additional Past Alcohol Use History / Comment(s): Pt started smoking in 1975 and quit 4 days ago. She was a ppd smoker. Past Drug Use History: Marijuana Additional Drug Use History / Comment(s): Pt states she smokes a joint at for sleeping. - Past Family History Father Additional Family Medical History / Comment(s): Father was an alcoholic. He of a brain tumor. He was schizophrenic. Mother Family Medical History: Diabetes Mellitus Additional Family Medical History / Comment(s): Mother lived to be 78yrs old. General Exam Limitations: no limitations General appearance: alert, in no apparent distress Head exam: Present: atraumatic, normocephalic, normal inspection Eye exam: Present: normal appearance, PERRL, EOMI. Absent: scleral icterus, conjunctival injection, periorbital swelling ENT exam: Present: normal exam, normal oropharynx, mucous membranes moist Neck exam: Present: normal inspection, full ROM. Absent: tenderness, meningismus, lymphadenopathy Respiratory exam: Present: wheezes (Minimal). Absent: normal lung sounds bilaterally, respiratory distress, rales, rhonchi, stridor Cardiovascular Exam: Present: regular rate, normal rhythm, normal heart sounds. Absent: systolic murmur, diastolic murmur, rubs, gallop, clicks Extremities exam: Present: normal capillary refill. Absent: pedal edema Neurological exam: Present: alert, oriented X3, CN II-XII intact Skin exam: Present: warm, dry, intact, normal color. Absent: rash Course Vital Signs 09/05/20 09/05/20 06:36 06:48 Temperature 97.6 F Pulse Rate 89 Respiratory 18 18 Rate Blood Pressure 134/90 O2 Sat by Pulse 100 Oximetry Medical Decision Making - Medical Decision Making 59-year-old female presented as a transfer from [facility]. Patient's found to have acute respiratory distress related to COPD, CHF A. fib RVR. Patient was placed on BiPAP Lasix Ativan heparin. Patient will be admitted with pulmonary consult, who continue on Eliquis, heparin will be DC'd. Patient will be closely monitor. Patient's artery has improved his patient ate is 96% will be held patient was started on oral Cardizem. Patient will be weaned off BiPAP Disposition Clinical Impression: Respiratory distress, COPD (chronic obstructive pulmonary disease), CHF (congestive heart failure), Atrial fibrillation with RVR Disposition: ADMITTED IP TO THIS HOSP Condition: Fair Referrals: Nonstaff,Physician [Primary Care Provider] - 1-2 days Time of Disposition: 07:15
[2020-09-05 08:33] LABS: Basophils % (A) 0 %; Eosinophils # (A) 0.1 k/uL (0-0.7); Eosinophils % (A) 1 %; HCT 44.3 % (34.0-46.0); HGB 14.2 gm/dL (11.4-16.0); Lymphocytes # (A) 0.3 k/uL (1.0-4.8); Lymphocytes % (A) 4 %; MCH 32.9 pg (25.0-35.0); MCHC 32.1 g/dL (31.0-37.0); MCV 102.7 fL (80.0-100.0); Macrocytosis Slight; Mean Platelet Volume 7.2; Monocytes # (A) 0.1 k/uL (0-1.0); Monocytes % (A) 2 %; Neutrophils # (A) 7.3 k/uL (1.3-7.7); Neutrophils % (A) 93 %; Platelet Count 258 k/uL (150-450); RBC 4.32 m/uL (3.80-5.40); RDW 13.6 % (11.5-15.5); WBC 7.9 k/uL (3.8-10.6)
[2020-09-05 08:46] LABS: ALT 17 U/L (4-34); AST 27 U/L (14-36); African American GFR (CKD) >90 (>60 ml/min/1.73 sqM); Albumin 4.2 g/dL (3.5-5.0); Alkaline Phosphatase 120 U/L (38-126); Anion Gap 5 mmol/L; Blood Urea Nitrogen 21 mg/dL (7-17); Calcium 8.4 mg/dL (8.4-10.2); Carbon Dioxide 25 mmol/L (22-30); Chloride 105 mmol/L (98-107); Glucose 141 mg/dL (74-99); Non-African American GFR(CKD) >90 (>60 ml/min/1.73 sqM); Potassium 4.5 mmol/L (3.5-5.1); Sodium 135 mmol/L (137-145); Total Bilirubin 0.5 mg/dL (0.2-1.3); Total Protein 7.2 g/dL (6.3-8.2)
[2020-09-05] MEDS ORDERED: FUROSEMIDE 40 MG TAB PO SCH (09:00)
[2020-09-05] MEDS ORDERED: DILTIAZEM CD 240 MG CAP.ER.24H PO SCH ×2 (09:00→09:45)
[2020-09-05] MEDS: OXYBUTYNIN XL 5 MG TAB.ER.24 PO SCH (09:24)
[2020-09-05] MEDS: FUROSEMIDE 10 MG/ML 2 ML VIAL IV SCH ×2 (09:24→21:55)
[2020-09-05] MEDS: MULTIVITAMINS, THERA 1 EACH TAB PO SCH (09:24)
[2020-09-05] MEDS: APIXABAN 5 MG TAB PO SCH ×2 (09:24→21:53)
[2020-09-05] MEDS: NICOTINE 14MG/24HR PATCH TRANSDERM SCH (09:25)
[2020-09-05] MEDS: METOPROLOL TARTRATE 25 MG TAB PO SCH ×4 (09:27→21:54)
--- NOTE | 2020-09-05 10:42 | HP ---
HISTORY AND PHYSICAL A 59-year-old white female transferred down from the [facility] due to shortness of breath. She was placed on a BiPAP. She was found to be atrial fibrillation, rapid ventricular response, COPD, continues to smoke, atrial fibrillation on anticoagulants, takes Eliquis twice a day due to shortness of breath. She was admitted, placed on Cardizem drip and BiPAP, given Lasix and Cardizem, significant improvement. She will be monitored for Cardiology over the next 24 hours to be seen by Pulmonology. CAT scan of the chest negative for PE, COPD-type changes. HOME MEDICINES: Eliquis 5 mg b.i.d., fish oil daily, multivitamin daily, Ditropan XL 5 daily, Effexor XR 75 mg at night and 150 in the morning, hydroxyzine 25 mg b.i.d., Zestril 10 mg daily. ALLERGIES: METOPROLOL. 14 POINT REVIEW OF SYSTEMS: Negative except for as mentioned in HPI. PAST MEDICAL HISTORY: Atrial fibrillation, eye disorder, GI bleed, hypertension, memory impairment, pneumonia, bilateral cataracts, tinnitus, cardiomyopathy, tricuspid valve regurgitation, dementia, tachy-enid, Jehovah Witness, no blood products, right hand surgery in the past. He lives with his son. He is a pack-a-day smoker, quit smoking in 1975 and went back to it, does marijuana. FAMILY HISTORY: Father is an alcoholic, from brain tumor, schizophrenic. Mother, diabetes mellitus. PHYSICAL EXAM: Alert, in no acute distress. HEAD: Normocephalic, atraumatic. Pupils equal, round, reactive. ENT: External ear canals within normal limits. NECK: Supple. No mass. CARDIOVASCULAR: Irregular regular rhythm. Heart rate near 100-120, blood pressure 134/90, O2 is 100, respiratory rate 18 to 20, pulse 60s, temperature 97.6. LUNGS: Decreased breath sounds x4. EXTREMITIES: Absent pedal edema. NEURO: Alert and orient x3. SKIN: Warm, dry, intact. ASSESSMENT: Respiratory distress secondary to COPD exacerbation, congestive heart failure, atrial fibrillation, rapid ventricular response, placed on BiPAP. Continue on Eliquis. Pulmonary and Cardiology to see her. Cardizem drip was given, was switched over to oral Cardizem. Cardiology recommends. MMODL / IJN: [id number] /
--- NOTE | 2020-09-05 11:46 | P.CRDCN ---
History of Present Illness History of present illness: HISTORY OF PRESENTING ILLNESS This is a pleasant 59-year-old female past medical history significant for atrial fibrillation, hypertension, COPD and chronic nicotine dependence. S he is vague with her history, no previous records in our office. An echocardiogram was performed in April of this year revealing preserved LV systolic function with ejection fraction 55-60%, moderate to severe mitral regurgitation, mild mitral stenosis with a mean gradient across the mitral valve of 10 mmHg, mild tricuspid regurgitation and mild pulmonary hypertension with an RVSP of 45 mmHg We have been asked to see in consultation for Maria Teresa hall with RVR. She was transferred here from [facility] where she presented with symptoms of shortness of breath. She is seen and examined sitting up in bed with BiPAP on. Her breathing had been getting increasingly worse over the previous one week. When she arrived at the hospital she was in atrial fibrillation with RVR. She was given IV Cardizem Lasix and had some improvement in her symptoms. Currently she is seen and examined sitting up in bed with a blood pressure 134/85 heart rate of 115 telemetry tracings indicate atrial flutter. There is no baseline EKG obtained at this hospital. Laboratory data reviewed from our lab revealed a white blood cell count of 17.3, hemoglobin 13.9, platelets 293, potassium 4.6, creatinine 0.7, magnesium 2.2, TSH 4.7 and troponin 0.1. Laboratory data reviewed here obtained this morning revealed WBC of 7.9, hemoglobin of 14.2, platelets of 258, sodium 135, potassium 4.5, creatinine 0.67, troponin 0.05 to an antique proBNP 6220. Home medications include Eliquis 5 mg twice a day, diltiazem 240 mg daily, Lasix 40 mg daily and lisinopril 10 mg at bedtime. REVIEW OF SYSTEMS At the time of my exam: CONSTITUTIONAL: Denies fever or chills. CARDIOVASCULAR: Complains of shortness of breath. Denies chest pain, orthopnea, PND or palpitations. RESPIRATORY: Denies cough. GASTROINTESTINAL: Denies abdominal pain, diarrhea, constipation, nausea or vomiting. MUSCULOSKELETAL: Denies myalgias. NEUROLOGIC: Denies numbness, tingling or weakness. ENDOCRINE: Denies fatigue, weight change, polydipsia or polyurina. GENITOURINARY: Denies burning, hematuria or urgency with micturation. HEMATOLOGIC: Denies history of anemia or bleeding. PHYSICAL EXAMINATION CONSTITUTIONAL: No apparent distress. HEENT: Head is normocephalic. Pupils are equal, round. Sclerae anicteric. Mucous membranes of the mouth are moist. No JVD. No carotid bruit. CHEST EXAMINATION: Diminished bilatearlly, faint bibasilar rales and expiratory wheezes. No rhonchi. No chest wall tenderness is noted on palpation or with deep breathing. HEART EXAMINATION: Irregular rate and rhythm. S1, S2 heard. Systolic ejection murmur at the left sternal border, no gallops or rub. ABDOMEN: Soft, nontender. Positive bowel sounds. EXTREMITIES: 2+ peripheral pulses, no lower extremity edema and no calf tenderness. NEUROLOGIC EXAMINATION: Patient is awake, alert and oriented x3. ASSESSMENT Typical atrial flutter Chronic persistent atrial fibrillation on long-term anticoagulation Type II myocardial infarction secondary to oxygen supply and demand mismatch. Acute on chronic diastolic heart failure Hypertension COPD Chronic nicotine dependence PLAN Resume Eliquis. Decrease Cardizem to 120 mg daily and initiate Lopressor 25 mg twice a day. Lengthy discussion had with the patient. She feels as though Lopressor will increase her heart rate. We explained the pharmacology and mechanism of action to the patient and she is agreeable to try this in a monitored setting. Repeat chest x-ray in the morning. Document accurate intake and output along with daily weights. Follow renal function and electrolytes in the morning. Repeat limited echocardiogram for LV function. Further recommendations to follow based upon clinical course. Thank you kindly for this consultation. Nurse Practitioner note has been reviewed, I agree with a documented findings and plan of care. Patient was seen and examined. Past Medical History Past Medical History: Atrial Fibrillation, Eye Disorder, GI Bleed, Hypertension, Memory Impairment, Pneumonia Additional Past Medical History / Comment(s): Pt has spot on lung-unable to follow up as yet d/t covid, murmur, bilateral cataracts, vertigo if stands too quickly, occasional bilateral tinnitis, past blood in stool, occasional low back spasms, record sent from [facility] lists, cardiomyopathy/tricuspid valve regurg/dementia/tachybrady/thought disorder but pt does not recall these. PT IS A JEHOVAH WITNESS-NO BLOOD PRODUCTS. History of Any Multi-Drug Resistant Organisms: None Reported Additional Past Surgical History / Comment(s): right hand surgery d/t dog bite/pins since removed Past Anesthesia/Blood Transfusion Reactions: No Reported Reaction Additional Past Anesthesia/Blood Transfusion Reaction / Comment(s): PT IS A JEHOVAH WITNESS-NO BLOOD PRODUCTS. Past Psychological History: Anxiety, Depression Additional Psychological History / Comment(s): Pt resides with her son. She uses no assistive device. She does not drive, her sister is helpful to her and takes her to appts. Pt states she has had increased depression over past year after her son , she denies any thoughts/plans of suicide. Past Alcohol Use History: None Reported Additional Past Alcohol Use History / Comment(s): Pt started smoking in 1975 and quit 4 days ago. She was a ppd smoker. Past Drug Use History: Marijuana Additional Drug Use History / Comment(s): Pt states she smokes a joint at for sleeping. - Past Family History Father Additional Family Medical History / Comment(s): Father was an alcoholic. He of a brain tumor. He was schizophrenic. Mother Family Medical History: Diabetes Mellitus Additional Family Medical History / Comment(s): Mother lived to be 78yrs old. Medications and Allergies Home Medications Medication Instructions Recorded Confirmed Type Apixaban [Eliquis] 5 mg PO BID 05/14/20 09/05/20 History Fish Oil(Unknown) 1 cap PO DAILY 05/14/20 09/05/20 History Multivitamins, Thera [Multivitamin 1 tab PO DAILY 05/14/20 09/05/20 History (formulary)] Oxybutynin Xl [Ditropan XL] 5 mg PO DAILY 05/14/20 09/05/20 History Venlafaxine HCl ER [Effexor XR] 75 mg PO HS 05/14/20 09/05/20 History Venlafaxine HCl ER [Effexor XR] 150 mg PO DAILY 05/14/20 09/05/20 History hydrOXYzine HCL 25 mg PO BID 05/14/20 09/05/20 History lisinopriL [Zestril] 10 mg PO HS 05/14/20 09/05/20 History Diltiazem Cd [Cardizem CD] 240 mg PO DAILY #30 cap.er.24h 05/16/20 09/05/20 Rx Furosemide [Lasix] 40 mg PO DAILY 30 Days #30 tablet 05/16/20 09/05/20 Rx Allergies Allergy/AdvReac Type Severity Reaction Status Date / Time metoprolol AdvReac Rapid Verified 09/05/20 09:10 Heart Rate Physical Exam Vitals: Vital Signs Temp Pulse Pulse Resp BP BP Pulse Ox 09/05/20 09:00 96.9 F L 115 H 20 134/85 99 09/05/20 07:35 98 20 121/85 100 09/05/20 06:48 18 09/05/20 06:36 97.6 F 89 18 134/90 100 Intake and Output 09/04/20 09/05/20 09/05/20 22:59 06:59 14:59 Output Total 500 Balance -500 Output: Urine 500 Other: Voiding Method Indwelling Catheter Weight 44 kg Results 09/05/20 08:17 09/05/20 08:17 Cardiac Enzymes 09/05/20 09/05/20 Range/Units 08:17 08:17 AST 27 (14-36) U/L Troponin I 0.052 H* (0.000-0.034) ng/mL CBC 09/05/20 Range/Units 08:17 WBC 7.9 (3.8-10.6) k/uL RBC 4.32 (3.80-5.40) m/uL Hgb 14.2 (11.4-16.0) gm/dL Hct 44.3 (34.0-46.0) % Plt Count 258 (150-450) k/uL Comprehensive Metabolic Panel 09/05/20 Range/Units 08:17 Sodium 135 L (137-145) mmol/L Potassium 4.5 (3.5-5.1) mmol/L Chloride 105 (98-107) mmol/L Carbon Dioxide 25 (22-30) mmol/L BUN 21 H (7-17) mg/dL Creatinine 0.67 (0.52-1.04) mg/dL Glucose 141 H (74-99) mg/dL Calcium 8.4 (8.4-10.2) mg/dL AST 27 (14-36) U/L ALT 17 (4-34) U/L Alkaline Phosphatase 120 (38-126) U/L Total Protein 7.2 (6.3-8.2) g/dL Albumin 4.2 (3.5-5.0) g/dL Current Medications Generic Name Dose Route Start Last Admin Trade Name Martinq PRN Reason Stop Dose Admin Albuterol/Ipratropium 3 ml 09/05/20 08:00 Ipratropium-Albuterol 3 Ml Neb INHALATION RT-QID OWEN Apixaban 5 mg 09/05/20 09:00 09/05/20 09:24 Apixaban 5 Mg Tab PO 5 mg BID OWEN Administration Diltiazem HCl 120 mg 09/05/20 09:55 Diltiazem Cd 120 Mg Cap.Er.24h PO DAILY OWEN Furosemide 20 mg 09/05/20 09:00 09/05/20 09:24 Furosemide 10 Mg/Ml 2 Ml Vial IV 20 mg Q12HR OWEN Administration Hydroxyzine HCl 25 mg 09/05/20 09:00 Hydroxyzine Hcl 25 Mg Tab PO BID OWEN Lisinopril 10 mg 09/05/20 21:00 Lisinopril 10 Mg Tab PO HS [facility] Methylprednisolone Sodium Succinate 60 mg 09/05/20 12:00 Methylprednisolone Sod Succi 125 Mg/2 Ml Vial IV Q6HR [facility] Metoprolol Tartrate 25 mg 09/05/20 10:00 Metoprolol Tartrate 25 Mg Tab PO BID OWEN Multivitamins 1 each 09/05/20 09:00 09/05/20 09:24 Multivitamins, Thera 1 Each Tab PO 1 each DAILY OWEN Administration Nicotine 1 patch 09/05/20 09:00 09/05/20 09:25 Nicotine 14mg/24hr Patch TRANSDERM 1 patch DAILY OWEN Administration Oxybutynin Chloride 5 mg 09/05/20 09:00 09/05/20 09:24 Oxybutynin Xl 5 Mg Tab.Er.24 PO 5 mg DAILY OWEN Administration Intake and Output 09/04/20 09/05/20 09/05/20 22:59 06:59 14:59 Output Total 500 Balance -500 Output: Urine 500 Other: Voiding Method Indwelling Catheter Weight 44 kg 09/05/20 08:17 09/05/20 08:17
[2020-09-05] MEDS ORDERED: methylPREDNISolone SOD SUCCI 125 MG/2 ML VIAL IV SCH (12:00)
[2020-09-05] MEDS: hydrOXYzine HCL 25 MG TAB PO SCH ×2 (12:22→21:54)
[2020-09-05] MEDS: DILTIAZEM CD 120 MG CAP.ER.24H PO SCH (12:22)
[2020-09-05 12:59] VITALS: BMI 17.8
--- NOTE | 2020-09-05 13:44 | ECHOF ---
Referral Reason: MEASUREMENTS -------- HEIGHT: 154.9 cm WEIGHT: 44.0 kg BP: 134/85 RVIDd: 2.8 cm (< 3.3) IVSd: 1.3 cm (0.6 - 1.1) LVIDd: 4.8 cm (3.9 - 5.3) LVPWd: 1.3 cm (0.6 - 1.1) IVSs: 1.6 cm LVIDs: 2.3 cm LVPWs: 1.7 cm LA Diam: 4.2 cm (2.7 - 3.8) LAESV Index (A-L): 44.28 ml/m Ao Diam: 3.0 cm (2.0 - 3.7) AV Cusp: 1.9 cm (1.5 - 2.6) MV EXCURSION: 17.202 mm (> 18.000) MV EF SLOPE: 21 mm/s (70 - 150) EPSS: 0.4 cm AR PHT: 474 ms FINDINGS -------- Atrial fibrillation. This was a technically good study. The left ventricular size is normal. There is mild concentric left ventricular hypertrophy. Overa ll left ventricular systolic function is normal with, an EF between 60 - 65 %. The right ventricle is normal in size. LA is severely dilated >40 ml/m2 The right atrium is normal in size. Interatrial and interventricular septum intact. Aortic valve is trileaflet and is mildly thickened. There is [id number] aortic regurgitation. The mitral valve leaflets are moderate to severely thickened. Severe mitral annular calcification p resent. Moderate mitral regurgitation is present. There is severe mitral calcification, predomina ntly of the posterior leaflet with color doppler flow acceleration of the inflow jet and average mean gradient of 11mmHg with a heart rate of 90-110 bpm concerning for at least moderate mitral stenosis. May consider reevaluation when HR slower or LARRY to further assess severity of mitral stenosis if cl inically indicated. The tricuspid valve appears structurally normal. Trace/mild (physiologic) pulmonic regurgitation. The aortic root size is normal. Normal inferior vena cava with normal inspiratory collapse consistent with estimated right atrial pre ssure of 5 mmHg. There is no pericardial effusion. CONCLUSIONS -------- 1. The left ventricular size is normal. 2. There is mild concentric left ventricular hypertrophy. 3. Overall left ventricular systolic function is normal with, an EF between 60 - 65 %. 4. LA is severely dilated >40 ml/m2 5. Aortic valve is trileaflet and is mildly thickened. 6. There is [id number] aortic regurgitation. 7. The mitral valve leaflets are moderate to severely thickened. 8. Severe mitral annular calcification present. 9. Moderate mitral regurgitation is present. 10. There is severe mitral calcification, predominantly of the posterior leaflet with color doppler f low acceleration of the inflow jet and average mean gradient of 11mmHg with a heart rate of 90-110 bp m concerning for at least moderate mitral stenosis. May consider reevaluation when HR slower or LARRY to further assess severity of mitral stenosis if clinically indicated. 11. The tricuspid valve appears structurally normal. 12. Trace/mild (physiologic) pulmonic regurgitation. 13. There is no pericardial effusion. DIRECTOR [employer]ELOPMENT: Annabel Portillo RDCS
--- NOTE | 2020-09-05 15:24 | CONS ---
CONSULTATION PULMONARY/CRITICAL CARE CONSULTATION: DATE OF SERVICE: 09/05/2020 REASON FOR CONSULTATION: Shortness of breath. This is a 59-year-old female who apparently now sees Dr. Gayle in [place]. She used to see a different doctor in the past. She apparently was transported from her apartment to the [facility] where she was evaluated there. Apparently from there, she was transferred down here for further evaluation and treatment. She apparently came in with complaints of 4 days worth of increasing shortness of breath. On arrival, she is apparently found to be in acute respiratory distress. She had atrial fibrillation with RVR, was thought to have both a COPD exacerbation as well as atrial fibrillation with heart failure. Anyway, the patient was placed on BiPAP. She received Lasix IV, Ativan, Cardizem, and significantly improved. Today, she is lying in bed. She was seen by our team back in April. I believe she saw Dr. Finley at that time. One of our nurse practitioners saw the patient along with Dr. Finley. The impression at that time was that she had CHF and also atrial fibrillation with RVR, a very similar picture on this admission. She had a CT scan of the chest, which was negative for PE. The patient is feeling much better as mentioned. She does use oxygen at home, does not use is all the time. Unfortunately, she continues to smoke. . HOME MEDICATIONS: Reviewed. They include Eliquis, fish oil, multivitamins, Ditropan, Effexor XR, hydroxyzine, Zestril, Augmentin, Cardizem CD, Lasix and nicotine patch. ALLERGIES: METOPROLOL. MEDICAL HISTORY: Atrial fibrillation, CHF, GI bleed, hypertension, memory impairment, pneumonia, COPD, bilateral cataracts, vertigo, tinnitus, back spasms, valvular heart disease in the form of tricuspid valve regurgitation, and the patient by the way is a [employer]. SURGICAL HISTORY: Includes right hand surgery and some other minor procedures. SOCIAL HISTORY: Positive for ongoing tobacco use. She denies any alcohol use. No illicit drug use, although she has smoked marijuana in the past. FAMILY HISTORY: Positive for a father who was an alcoholic who of a brain tumor. He was also schizophrenic. Mother had a history of diabetes mellitus. REVIEW OF SYSTEMS: CONSTITUTIONAL: Negative. NEUROLOGIC: Negative. HEENT; Negative. CARDIOVASCULAR: Tachycardia, palpitations. PULMONARY: Shortness of breath. GI: Negative. : Negative. RHEUMATOLOGIC: Negative. IMMUNOLOGIC: Negative. ENDOCRINOLOGIC: Negative. DERMATOLOGIC: Negative. Current vital signs are reviewed. Temperature is 98 degrees heart rate 88 and regular. She is clearly in atrial fibrillation. Respiratory rate 20, blood pressure 134/104, mean 114, CO2 saturation 98%. Appears in no acute distress. She is wearing nasal O2. HEENT: Examination is grossly unremarkable. Mucous membranes are moist. NECK: Supple, full range of motion. No adenopathy. Neck veins flat. CARDIOVASCULAR: Examination reveals regular rhythm and rate. Heart rate about 85 beats per minute. She is in atrial fibrillation. No distinct murmur noted. LUNGS: Reveal bibasilar crackles. No distinct wheezes are noted. There are a few scattered rhonchi. Breath sounds equal. ABDOMEN: Soft, bowel sounds are noted. EXTREMITIES: Intact. No edema. SKIN: Without rash. NEUROLOGIC: Examination is brief but nonfocal. LABS: Reviewed. White count 7.9, hemoglobin 14.2, hematocrit 44.3, platelet count 208,000, sodium 135, potassium 4.5, chloride 105, CO2 is 25, anion gap is 5. BUN and creatinine were 21 and 0.67. BUN and creatinine ratio suggests prerenal azotemia. Glucose 141. Troponin 0.052, N terminal proBNP 6,220. TSH is normal. Microbiologic studies are negative. Chest x-ray and CT scan evaluated from the outside hospital shows evidence of fluid overload and CHF. CT angiogram was negative for PE. There is bilateral effusions, right greater than left. Medications are reviewed. Currently, she is on Eliquis, Cardizem CD, Lasix, hydroxyzine, DuoNeb lisinopril, Solu-Medrol, metoprolol, multivitamins, nicotine patch, and Ditropan. ASSESSMENT: 1. Shortness of breath, primarily related to underlying atrial fibrillation as well as CHF/congestive heart failure. 2. Chronic obstructive pulmonary disease, not particularly active at this time. 3. History of ongoing tobacco use with nicotine addiction. 4. History is GI bleed. 5. Essential hypertension. 6. Memory impairment. 7. Prior history of pneumonia. 8. Bilateral cataracts. 9. Orthostatic hypotension. 10.Bilateral tendinitis. 11.Cardiomyopathy. 12.Valvular heart disease. 13.Multiple other medical problems and comorbidities. PLAN: Medications are reviewed. Will adjust her medications accordingly. She really does not need IV Solu-Medrol. Will put her on a small dose of prednisone. Also place her on some Symbicort. Will make sure she is on updraft. Additional recommendations and suggestions are forthcoming. Her primary abnormality is atrial fibrillation with fluid overload/CHF. MMODL / IJN: [id number] /
[2020-09-05] MEDS ORDERED: DILTIAZEM CD 120 MG CAP.ER.24H PO STA (16:19)
[2020-09-05] MEDS: IPRATROPIUM-ALBUTEROL 3 ML NEB INHALATION SCH ×2 (16:26→20:06)
[2020-09-05] MEDS: VENLAFAXINE HCL ER 150 MG CAP PO SCH (18:13)
[2020-09-05] MEDS: SYMBICORT 160-4.5 MCG INHALER INHALATION SCH (20:06)
[2020-09-05] MEDS ORDERED: VENLAFAXINE HCL ER 75 MG CAP PO SCH (21:00)
[2020-09-05] MEDS ORDERED: lisinopriL 10 MG TAB PO SCH (21:00)
[2020-09-06] MEDS: SYMBICORT 160-4.5 MCG INHALER INHALATION SCH (08:47)
[2020-09-06] MEDS: IPRATROPIUM-ALBUTEROL 3 ML NEB INHALATION SCH ×3 (08:47→15:42)
--- NOTE | 2020-09-06 08:56 | XR ---
EXAMINATION TYPE: XR chest 2V DATE OF EXAM: 09/06/2020 COMPARISON: 09/05/2020 HISTORY: 59-year-old female follow-up shortness of breath TECHNIQUE: PA and lateral views FINDINGS: Heart mildly enlarged. Interstitial densities show considerable improvement. Trace effusion seen on the lateral view. IMPRESSION: 1. Mild cardiomegaly. Interstitial opacities show considerable improvement, likely interstitial pulmo nary edema. 2. Trace effusions are present on the lateral view.
[2020-09-06] MEDS ORDERED: DILTIAZEM CD 240 MG CAP.ER.24H PO SCH (09:00)
[2020-09-06] MEDS ORDERED: DILTIAZEM CD 120 MG CAP.ER.24H PO SCH (09:00)
[2020-09-06] MEDS ORDERED: predniSONE 20 MG TAB PO SCH (09:00)
[2020-09-06 09:35] LABS: Basophils % (A) 0 %; Eosinophils % (A) 0 %; HCT 45.3 % (34.0-46.0); HGB 14.7 gm/dL (11.4-16.0); Lymphocytes % (A) 9 %; MCH 33.1 pg (25.0-35.0); MCHC 32.5 g/dL (31.0-37.0); MCV 101.7 fL (80.0-100.0); Macrocytosis Slight; Mean Platelet Volume 7.7; Monocytes # (A) 0.9 k/uL (0-1.0); Monocytes % (A) 8 %; Neutrophils # (A) 9.4 k/uL (1.3-7.7); Neutrophils % (A) 82 %; Platelet Count 298 k/uL (150-450); RBC 4.45 m/uL (3.80-5.40); RDW 13.7 % (11.5-15.5); WBC 11.4 k/uL (3.8-10.6)
[2020-09-06 09:39] LABS: ALT 17 U/L (4-34); AST 25 U/L (14-36); African American GFR (CKD) >90 (>60 ml/min/1.73 sqM); Albumin 4.4 g/dL (3.5-5.0); Alkaline Phosphatase 110 U/L (38-126); Anion Gap 7 mmol/L; Blood Urea Nitrogen 24 mg/dL (7-17); Calcium 9.6 mg/dL (8.4-10.2); Carbon Dioxide 30 mmol/L (22-30); Chloride 96 mmol/L (98-107); Glucose 125 mg/dL (74-99); Non-African American GFR(CKD) 82 (>60 ml/min/1.73 sqM); Potassium 4.8 mmol/L (3.5-5.1); Sodium 133 mmol/L (137-145); Total Bilirubin 0.7 mg/dL (0.2-1.3); Total Protein 7.5 g/dL (6.3-8.2)
[2020-09-06] MEDS: hydrOXYzine HCL 25 MG TAB PO SCH (09:50)
[2020-09-06] MEDS: DILTIAZEM CD 120 MG CAP.ER.24H PO SCH (09:50)
[2020-09-06] MEDS: APIXABAN 5 MG TAB PO SCH (09:50)
[2020-09-06] MEDS: OXYBUTYNIN XL 5 MG TAB.ER.24 PO SCH (09:50)
[2020-09-06] MEDS: METOPROLOL TARTRATE 25 MG TAB PO SCH (09:50)
[2020-09-06] MEDS: MULTIVITAMINS, THERA 1 EACH TAB PO SCH (09:50)
[2020-09-06] MEDS: VENLAFAXINE HCL ER 150 MG CAP PO SCH (09:50)
[2020-09-06] MEDS: NICOTINE 14MG/24HR PATCH TRANSDERM SCH (09:52)
[2020-09-06] MEDS: FUROSEMIDE 10 MG/ML 2 ML VIAL IV SCH (09:52)
--- NOTE | 2020-09-06 14:57 | P.PN ---
Subjective Progress Note Date: 09/06/20 Principal diagnosis: Shortness of breath 59-year-old white female patient that was admitted to hospital on 09/05/2020 and she presented to the hospital for evaluation of shortness of breath and acute respiratory distress. Patient was found to be in A. fib with RVR, she is also diagnosed with acute exacerbation of COPD and acute exacerbation of CHF. He was placed on BiPAP support, she was diuresed, started on Cardizem for rate control. Her CTA chest did not show evidence of pulmonary embolism. She'll. Right and left. Chest x-ray showed evidence of fluid overload and CHF. Today on 09/06/2020 patient seen in follow-up on selective care unit, patient is on 2 L of oxygen with pulse ox of 100%, hemodynamics are stable, she is off BiPAP support, she is breathing easier, she is afebrile. Her A. fib was controlled, she is in negative fluid balance. Currently on Lasix 20 mg every 8 hours, she is on nebulized bronchodilators, and oral prednisone. She is on oral ant icoagulation in the form of Eliquis. Cardizem drip has been discontinued, patient has been transitioned to oral Cardizem 120 mg daily. No complaints of chest pain, no hemoptysis, no significant cough or congestion. Objective - Vital Signs Vital signs: Vital Signs Temp 98.4 F 09/06/20 08:00 Pulse 102 H 09/06/20 12:00 Resp 18 09/06/20 12:00 BP 144/63 09/06/20 08:00 Pulse Ox 100 09/06/20 08:00 Intake & Output 09/05/20 09/06/20 09/06/20 18:59 06:59 18:59 Intake Total 478 240 Output Total 500 Balance -22 240 Weight 44 kg 43.6 kg Intake: Oral 478 240 Output: Urine 500 Other: Voiding Method Indwelling Catheter Indwelling Catheter Indwelling Catheter - Exam GENERAL EXAM: Alert, very pleasant, 59-year-old and 7600%, comfortable in no apparent distress. HEAD: Normocephalic/atraumatic. EYES: Normal reaction of pupils, equal size. Conjunctiva pink, sclera white. NOSE: Clear with pink turbinates. THROAT: No erythema or exudates. NECK: No masses, no JVD, no thyroid enlargement, no adenopathy. CHEST: No chest wall deformity. Symmetrical expansion. LUNGS: Equal air entry with no crackles, wheeze, rhonchi or dullness. CVS: Regular rate and rhythm, normal S1 and S2, no gallops, no murmurs, no rubs ABDOMEN: Soft, nontender. No hepatosplenomegaly, normal bowel sounds, no guarding or rigidity. EXTREMITIES: No clubbing, no edema, no cyanosis, 2+ pulses and upper and lower extremities. MUSCULOSKELETAL: Muscle strength and tone normal. SPINE: No scoliosis or deformity SKIN: No rashes CENTRAL NERVOUS SYSTEM: Alert and oriented -3. No focal deficits, tone is normal in all 4 extremities. PSYCHIATRIC: Alert and oriented -3. Appropriate affect. Intact judgment and insight. - Labs CBC & Chem 7: 09/06/20 08:25 09/06/20 08:25 Labs: Abnormal Lab Results - Last 24 Hours (Table) 09/06/20 09/06/20 Range/Units 08:25 08:25 WBC 11.4 H (3.8-10.6) k/uL MCV 101.7 H (80.0-100.0) fL Neutrophils # 9.4 H (1.3-7.7) k/uL Sodium 133 L (137-145) mmol/L Chloride 96 L (98-107) mmol/L BUN 24 H (7-17) mg/dL Glucose 125 H (74-99) mg/dL Assessment and Plan Plan: Assessment: #1. Shortness of breath, acute Respiratory failure related to acute exacerbation of CHF with diastolic dysfunction and atrial fibrillation with RVR #2. Chronic obstructive pulmonary disease and in particular active at this time #3. History of ongoing tobacco use. Nicotine addiction #4. History of GI bleeding #5. Hypertension #6. Memory impairment #7. Prior history of pneumonia #8. Bilateral cataracts #9. Orthostatic hypotension #10. Bilateral tendinitis #11. Valvular heart disease #12. Chronic diastolic CHF #13. Chronic persistent atrial fibrillation on long-term anticoagulation Plan: Continue with current medical treatment, IV diuretics, patient is breathing easier, continue with oral prednisone, nebulized bronchodilators, patient is off BiPAP, tolerating nasal cannula. Cardiogram results have been noted. No acute events overnight, will continue current medical treatment, daily electrolytes and renal profile, accurate intake and output, we'll continue to follow I performed a history & physical examination of the patient and discussed their management with my nurse practitioner, Carla Tee. I reviewed the nurse practitioner's note and agree with the documented findings and plan of care. Lung sounds are positive for diminished breath sounds. The findings and the impression was discussed with the patient. I attest to the documentation by the nurse practitioner. Time with Patient: Less than 30
--- NOTE | 2020-09-06 15:10 | P.PN ---
Subjective HISTORY OF PRESENTING ILLNESS This is a pleasant 59-year-old female past medical history significant for atrial fibrillation, hypertension, COPD and chronic nicotine dependence. She is seen and examined sitting up in bed in no acute distress. She states she didn't sleep all night because she wasn't given her vistaril. Blood pressure 112 /70 heart rate 100. She refused the lopressor in the morning but did take the PM dose along with cardizem. Laboratory data reviewed, WBC 11.4, hemoglobin 14.7, platelets 298, sodium 133, potassium 4.8, creatinine 0.8. Echocardiogram obtained reveals preserved LV systolic function with ejection fraction 60-65%, moderate MR, severe mitral calcification, predominantly of the posterior leaflet with color Doppler flow acceleration of the inflow jet with average mean gradient of 11 mmHg at a heart rate of 90-110. Output for the previous 24 hours is 500 mL. Chest xray this morning reveals mild cardiomegaly, interstitial opacity disease with considerable improvement. PHYSICAL EXAMINATION CONSTITUTIONAL: No apparent distress. HEENT: Head is normocephalic. Pupils are equal, round. Sclerae anicteric. Mucous membranes of the mouth are moist. No JVD. No carotid bruit. CHEST EXAMINATION: Diminished bilatearlly, faint bibasilar rales and expiratory wheezes. No rhonchi. No chest wall tenderness is noted on palpation or with deep breathing. HEART EXAMINATION: Irregular rate and rhythm. S1, S2 heard. Systolic ejection murmur at the left sternal border, no gallops or rub. EXTREMITIES: 2+ peripheral pulses, no lower extremity edema and no calf tenderness. ASSESSMENT Typical atrial flutter Chronic persistent atrial fibrillation on long-term anticoagulation Type II myocardial infarction secondary to oxygen supply and demand mismatch. Acute on chronic diastolic heart failure Hypertension COPD Chronic nicotine dependence PLAN Continue diltiazem and lopresor for rate control. Transition to oral diuretics. REcommend repeat echocardigram when her rates are controlled. Nurse Practitioner note has been reviewed, I agree with a documented findings and plan of care. Patient was seen and examined. Objective - Vital Signs Vital signs: Vital Signs Temp 98.0 F 09/06/20 04:08 Pulse 96 09/06/20 08:59 Resp 18 09/06/20 04:08 BP 112/70 09/06/20 04:08 Pulse Ox 100 09/06/20 04:08 Intake & Output 09/05/20 09/06/20 09/06/20 18:59 06:59 18:59 Intake Total 478 240 Output Total 500 - 240 Weight 44 kg 43.6 kg Intake: Oral 478 240 Output: Urine 500 Other: Voiding Method Indwelling Catheter Indwelling Catheter - Labs CBC & Chem 7: 09/06/20 08:25 09/06/20 08:25 Labs: Abnormal Lab Results - Last 24 Hours (Table) 09/05/20 Range/Units 08:17 Troponin I 0.052 H* (0.000-0.034) ng/mL
[2020-09-06 15:59] VITALS: PULSE 98; TEMP 98.2
[2020-09-06 17:04] VITALS: RESP 19
[2020-09-06 17:11] VITALS: BP 121/82
--- NOTE | 2020-09-06 21:02 | DS ---
DISCHARGE SUMMARY DISCHARGE DIAGNOSES: 1. Atrial fibrillation with rapid ventricular response. 2. Congestive heart failure. 3. Chronic obstructive pulmonary disease. 4. Acute hypoxemic respiratory distress. 5. Nicotine addiction. 6. History of atrial fibrillation with rapid ventricular response. Nicotine cessation was discussed with the patient. She was admitted to the hospital with atrial fibrillation with rapid ventricular response, congestive heart failure, possibly triggered by COPD exacerbation. She was treated with medications. She stabilized and she was sent home in stable condition with medicines as per Cardiology and Pulmonology with nebulizer treatments with DuoNeb q.i.d. at home as well as Symbicort inhaler 160/4.5 two puffs b.i.d., Lopressor 25 b.i.d., nicotine patch 14 mg daily, 20 mg daily for 30 days, diltiazem CD 120 mg daily, venlafaxine 150 mg daily and 75 mg at night, Ditropan XL 5 mg daily, multivitamin daily, hydroxyzine 25 b.i.d., Zestril 10 mg daily, Eliquis 5 mg b.i.d., Lasix 40 mg daily. CONDITION: Stable. PROGNOSIS: Guarded. Ambulate as tolerated. Follow up in the office as needed. Diet regular. MMODL / IJN: [id number] /
[2020-09-07] MEDS ORDERED: FUROSEMIDE 40 MG TAB PO SCH (09:00)
== END 2020-09-06 18:17 | disposition home or self-care (01) | DRG 281 ==
LOC: EC 06:28 → 3SCARD 06:56
PROVIDERS: ADMIT Family Medicine; ATTEND Family Medicine
PROC: 5A09457 Assistance with Respiratory Ventilation, 24-96 Consecutive Hours, Continuous Positive Airway Pressure (ICD-10-PCS; principal; 2020-09-05)
DX: I11.0 Hypertensive heart disease with heart failure (principal); I21.A1 Myocardial infarction type 2; I48.19 Other persistent atrial fibrillation; J44.1 Chronic obstructive pulmonary disease with (acute) exacerbation; I48.3 Typical atrial flutter; I50.33 Acute on chronic diastolic (congestive) heart failure; I27.20 Pulmonary hypertension, unspecified; I42.9 Cardiomyopathy, unspecified; F03.90 Unspecified dementia, unspecified severity, without behavioral disturbance, psychotic disturbance, mood disturbance, and anxiety; I95.1 Orthostatic hypotension; I08.1 Rheumatic disorders of both mitral and tricuspid valves; F32.9 Major depressive disorder, single episode, unspecified; F41.9 Anxiety disorder, unspecified; M62.830 Muscle spasm of back; H26.9 Unspecified cataract; H93.13 Tinnitus, bilateral; M77.9 Enthesopathy, unspecified; R06.03 Acute respiratory distress; F17.210 Nicotine dependence, cigarettes, uncomplicated; Z71.6 Tobacco abuse counseling; Z79.01 Long term (current) use of anticoagulants; Z79.899 Other long term (current) drug therapy; Z86.19 Personal history of other infectious and parasitic diseases; Z87.19 Personal history of other diseases of the digestive system; Z87.01 Personal history of pneumonia (recurrent); Z87.39 Personal history of other diseases of the musculoskeletal system and connective tissue; Z88.8 Allergy status to other drugs, medicaments and biological substances; Z81.1 Family history of alcohol abuse and dependence; Z83.3 Family history of diabetes mellitus; Z81.8 Family history of other mental and behavioral disorders; Z84.89 Family history of other specified conditions
CPT/HCPCS: 71046; 80053; 83880; 84443; 84484; 85025; 93306; 94640; 94660; 99285